=== PATIENT | male | born 1945 | race Two or more races ===

== ENCOUNTER → 2021-01-28 | Outpatient (CLI) | payer OTHER | END | disposition home or self-care (01) | LOC: XY 07:39 | PROVIDERS: ATTEND Internal Medicine | DX: C61 Malignant neoplasm of prostate (principal); R32 Unspecified urinary incontinence | CPT/HCPCS: 78306; A9503 ==

== ENCOUNTER → 2021-05-19 | Outpatient (CLI) | payer OTHER | END | disposition home or self-care (01) | LOC: LAB 11:58 | PROVIDERS: ATTEND Urology | DX: C61 Malignant neoplasm of prostate (principal); R32 Unspecified urinary incontinence | CPT/HCPCS: 84153 ==

== ENCOUNTER → 2021-10-22 | Outpatient (CLI) | payer OTHER | END | disposition home or self-care (01) | LOC: LAB 10:40 | PROVIDERS: ATTEND Urology | DX: R97.0 Elevated carcinoembryonic antigen [CEA] (principal) | CPT/HCPCS: 84153 ==

== ENCOUNTER → 2022-03-29 | Outpatient (CLI) | payer OTHER | END | disposition home or self-care (01) | LOC: LAB 12:32 | PROVIDERS: ATTEND Urology | DX: C61 Malignant neoplasm of prostate (principal) | CPT/HCPCS: 36415; 83036; 84132; 84153 ==

== ENCOUNTER → 2022-04-26 | Outpatient (CLI) | payer OTHER ==
[2022-04-26 09:23] LABS: Basophils # (auto) 0.1 10 ^3/uL (0-0.2); Basophils % (auto) 0.9 % (0.0-2.0); Eosinophils # (auto) 0.5 10 ^3/uL (0-0.8); Hematocrit 42.2 % (41.0-53.0); Hemoglobin 13.9 g/dL (13.5-17.5); Lymphocytes # (auto) 2.7 10 ^3/uL (0.4-5.4); Lymphocytes % (auto) 35.2 % (10.0-50.0); Mean Corpuscular Hemoglobin 30.9 pg (28.0-32.0); Mean Corpuscular Hgb Conc. 32.8 g/dL (32.0-36.0); Monocytes # (auto) 1.2 10 ^3/uL (0-1.3); Neutrophils # (auto) 3.2 10 ^3/uL (1.6-8.6); Neutrophils % (auto) 40.9 % (37.0-80.0); Red Blood Cells 4.49 10^6/uL (4.5-5.90); Red Cell Distribution Width 14.1 % (11.8-14.3); White Blood Cell 7.8 10^3/uL (4.4-10.8)
[2022-04-26 09:43] LABS: Albumin 3.3 g/dL (3.4-5.0)
[2022-04-26 09:49] LABS: BUN/Creatinine Ratio 12.4; Bilirubin, Total 1.1 mg/dL (0.2-1.0); Calcium 8.4 mg/dL (8.5-10.1); Total Protein 7.1 g/dL (6.4-8.2)
== END | disposition home or self-care (01) ==
LOC: LAB 08:52
PROVIDERS: ATTEND Internal Medicine
DX: I10 Essential (primary) hypertension (principal)
CPT/HCPCS: 36415; 80053; 85025

== ENCOUNTER → 2022-06-10 | Outpatient (CLI) | payer OTHER ==
[2022-06-10 12:14] LABS: Basophils # (auto) 0.1 10 ^3/uL (0-0.2); Basophils % (auto) 0.7 % (0.0-2.0); Eosinophils # (auto) 0.5 10 ^3/uL (0-0.8); Eosinophils % (auto) 5.5 % (0.0-7.0); Hematocrit 43.2 % (41.0-53.0); Hemoglobin 14.2 g/dL (13.5-17.5); Lymphocytes % (auto) 36.3 % (10.0-50.0); Mean Corpuscular Hemoglobin 31.1 pg (28.0-32.0); Mean Corpuscular Hgb Conc. 32.9 g/dL (32.0-36.0); Mean Corpuscular Volume 94.6 fL (80.0-100.0); Monocytes # (auto) 1.1 10 ^3/uL (0-1.3); Monocytes % (auto) 13.6 % (0.0-12.0); Neutrophils # (auto) 3.6 10 ^3/uL (1.6-8.6); Neutrophils % (auto) 43.9 % (37.0-80.0); Red Blood Cells 4.56 10^6/uL (4.5-5.90); Red Cell Distribution Width 14.9 % (11.8-14.3); White Blood Cell 8.2 10^3/uL (4.4-10.8)
[2022-06-10 12:20] LABS: Potassium 4.2 mmol/L (3.5-5.1)
[2022-06-10 12:24] LABS: Albumin 3.6 g/dL (3.4-5.0); BUN/Creatinine Ratio 8.7; Calcium 8.8 mg/dL (8.5-10.1)
[2022-06-10 12:26] LABS: Bilirubin, Total 1.3 mg/dL (0.2-1.0); Total Protein 7.2 g/dL (6.4-8.2)
== END | disposition home or self-care (01) ==
LOC: LAB 11:19
PROVIDERS: ATTEND Internal Medicine
DX: C61 Malignant neoplasm of prostate (principal)
CPT/HCPCS: 36415; 80053; 83615; 84153; 84403; 85025

== ENCOUNTER → 2022-07-12 | Outpatient (CLI) | payer OTHER | END | disposition home or self-care (01) | LOC: LAB 13:18 | PROVIDERS: ATTEND Urology | DX: C61 Malignant neoplasm of prostate (principal) | CPT/HCPCS: 84153; 84154 ==

== ENCOUNTER → 2022-11-22 | Outpatient (CLI) | payer OTHER | END | disposition home or self-care (01) | LOC: LAB 13:44 | PROVIDERS: ATTEND Urology | DX: C61 Malignant neoplasm of prostate (principal) | CPT/HCPCS: 84153; 84154 ==

== ENCOUNTER → 2022-11-25 | Outpatient (CLI) | payer OTHER ==
[2022-11-25 11:21] LABS: Basophils # (auto) 0.1 10 ^3/uL (0-0.2); Basophils % (auto) 0.8 % (0.0-2.0); Eosinophils # (auto) 0.5 10 ^3/uL (0-0.8); Eosinophils % (auto) 7.4 % (0.0-7.0); Hematocrit 41.2 % (41.0-53.0); Hemoglobin 14.2 g/dL (13.5-17.5); Lymphocytes # (auto) 1.6 10 ^3/uL (0.4-5.4); Lymphocytes % (auto) 25.2 % (10.0-50.0); Mean Corpuscular Hemoglobin 32.6 pg (28.0-32.0); Mean Corpuscular Hgb Conc. 34.4 g/dL (32.0-36.0); Mean Corpuscular Volume 94.7 fL (80.0-100.0); Monocytes % (auto) 16.8 % (0.0-12.0); Neutrophils # (auto) 3.1 10 ^3/uL (1.6-8.6); Neutrophils % (auto) 49.8 % (37.0-80.0); Nucleated Red Blood Cells % 0.1 %; Red Blood Cells 4.35 10^6/uL (4.5-5.90); Red Cell Distribution Width 13.6 % (11.8-14.3); White Blood Cell 6.2 10^3/uL (4.4-10.8)
[2022-11-25 11:47] LABS: Urine Bacteria FEW /hpf (None Seen); Urine Blood Negative /uL (Negative); Urine Mucus FEW (None Seen); Urine Specific Gravity 1.026 (1.001-1.035); Urine WBC 1 /hpf (0 - 3)
[2022-11-25 11:55] LABS: Potassium 4.1 mmol/L (3.5-5.1)
[2022-11-25 11:59] LABS: Free T4 (Free Thyroxine) 0.98 ng/dL (0.89-1.76)
[2022-11-25 12:02] LABS: Prostate Specific Antigen 5.84 ng/mL (0.0-4.0)
[2022-11-25 12:12] LABS: Albumin 3.3 g/dL (3.4-5.0); BUN/Creatinine Ratio 15.4; Bilirubin, Total 1.1 mg/dL (0.2-1.0); Calcium 8.7 mg/dL (8.5-10.1)
== END | disposition home or self-care (01) ==
LOC: LAB 10:50
PROVIDERS: ATTEND Internal Medicine
DX: C61 Malignant neoplasm of prostate (principal); I10 Essential (primary) hypertension; E11.9 Type 2 diabetes mellitus without complications
CPT/HCPCS: 36415; 80053; 80061; 81001; 82043; 82570; 83036; 83880; 84153; 84154; 84439; 84443; 85025; 85652

== ENCOUNTER → 2022-12-20 | Outpatient (CLI) | payer OTHER | END | disposition home or self-care (01) | LOC: LAB 10:27 | PROVIDERS: ATTEND Radiology Radiation Oncology | DX: C61 Malignant neoplasm of prostate (principal) | CPT/HCPCS: 84153; 84154 ==

== ENCOUNTER → 2023-05-30 | Outpatient (CLI) | payer OTHER | END | disposition home or self-care (01) | LOC: LAB 10:01 | PROVIDERS: ATTEND Urology | DX: C61 Malignant neoplasm of prostate (principal) | CPT/HCPCS: 84153 ==

== ENCOUNTER → 2024-03-14 | Outpatient (CLI) | payer MEDICAID ==
[2024-03-14 08:22] LABS: Basophils # (auto) 0.1 10 ^3/uL (0-0.2); Basophils % (auto) 0.7 % (0.0-2.0); Eosinophils # (auto) 0.5 10 ^3/uL (0-0.8); Eosinophils % (auto) 7.3 % (0.0-7.0); Hematocrit 39.6 % (41.0-53.0); Hemoglobin 13.4 g/dL (13.5-17.5); Lymphocytes # (auto) 2.9 10 ^3/uL (0.4-5.4); Lymphocytes % (auto) 38.8 % (10.0-50.0); Mean Corpuscular Hemoglobin 31.9 pg (28.0-32.0); Mean Corpuscular Hgb Conc. 33.8 g/dL (32.0-36.0); Mean Corpuscular Volume 94.6 fL (80.0-100.0); Monocytes # (auto) 1.3 10 ^3/uL (0-1.3); Monocytes % (auto) 17.2 % (0.0-12.0); Neutrophils # (auto) 2.7 10 ^3/uL (1.6-8.6); Red Blood Cells 4.18 10^6/uL (4.5-5.90); Red Cell Distribution Width 14.4 % (11.8-14.3); White Blood Cell 7.5 10^3/uL (4.4-10.8)
[2024-03-14 08:50] LABS: Albumin 3.5 g/dL (3.2-4.8); Alkaline Phosphatase 64 U/L (46-116); Anion Gap 7 (5-15); Aspartate Aminotransferase 19 U/L (13-40); BUN/Creatinine Ratio 8.4 (10.0-20.0); Blood Urea Nitrogen 8 mg/dL (9-23); Calcium 9.5 mg/dL (8.5-10.1); Carbon Dioxide 26 mmol/L (20-30); Chloride 106 mmol/L (98-107); Glucose 107 mg/dL (74-106); Magnesium 1.7 mg/dL (1.6-2.6); Potassium 3.9 mmol/L (3.5-5.1); Sodium 139 mmol/L (136-145)
[2024-03-14 08:51] LABS: Bilirubin, Total 1.1 mg/dL (0.2-1.0)
[2024-03-14 08:52] LABS: Alanine Aminotransferase < 9 U/L (7-40)
[2024-03-14 09:04] LABS: % Iron Saturation 15.9 % (20-55); Prostate Specific Antigen 9.96 ng/mL (0.0-4.0)
[2024-03-15 09:07] LABS: PSA Free 1.3 ng/mL; Prostate Specific Antigen 12.1 ng/mL (0.0-4.0)
== END | disposition home or self-care (01) ==
LOC: LAB 07:54
PROVIDERS: ATTEND Internal Medicine
DX: I13.0 Hypertensive heart and chronic kidney disease with heart failure and stage 1 through stage 4 chronic kidney disease, or unspecified chronic kidney disease (principal); E11.22 Type 2 diabetes mellitus with diabetic chronic kidney disease; N18.2 Chronic kidney disease, stage 2 (mild); I25.10 Atherosclerotic heart disease of native coronary artery without angina pectoris; R97.20 Elevated prostate specific antigen [PSA]
CPT/HCPCS: 36415; 80053; 82607; 83036; 83540; 83550; 83615; 83735; 84153; 84154; 85025

== ENCOUNTER → 2024-04-27 | Outpatient (CLI) | payer MEDICAID | END | disposition home or self-care (01) | LOC: LAB 12:19 | PROVIDERS: ATTEND Urology | DX: C61 Malignant neoplasm of prostate (principal); R30.0 Dysuria | CPT/HCPCS: 84153 ==

== ENCOUNTER → 2024-11-13 | Outpatient (CLI) | payer MEDICAID ==
[~2024-11-13] MED LIST: BICA50TA42 PO; CARB25TA77 PO; CARV-214 OR; CLOP75TA28 PO; FURO20TA3 PO; GLIP5TAB21 PO; LORA-1121 PO; METF-929 PO; MIRT1TAB38 PO; ROSU10TA16 PO; TAMS1CAP25 PO; TRAM50TA2 PO
== END | disposition home or self-care (01) ==
LOC: LAB 15:14
PROVIDERS: ATTEND Urology
DX: C61 Malignant neoplasm of prostate (principal)
CPT/HCPCS: 84153

== ENCOUNTER 2024-11-16 14:48 | Inpatient (IN) | payer OTHER, MEDICAID ==
[~2024-11-16] VITALS: Ht 172.7 cm; Wt 71.0 kg
--- NOTE | 2024-11-16 14:58 | ED.PDOC ---
Leobardo. trauma (HPI) HPI Comments 79 y.o male with medical history of COPD, CHF, TIA, HTN, hyperlipidemia, and prostate cancer, presents to the ED for a chief complaint of LUQ pain s/p fall 4 days ago . EMS reports patient had home hospice come to his house yesterday, evaluated possible fractures from the fall and were concerned of possible perforated bowel due to location of the pain. Patient at this time is mumbling, unable to get much information or any other associating complaints with the pain. Family on scene mentioned to EMS that patient's baseline is alert and oriented x 4. EMS gave 1 gram of Tylenol prior to ED arrival but no pain relief. Patient is on Plavix. Patient's last bowel movement was 3 days ago. Time Seen by MD: 14:44 Reviewed notes: Nurses Notes, Medications, Allergies Information Source: Emergency Med Personnel Mode of Arrival: EMS Severity: Moderate Timing: Days (4) Duration: Since onset Location: Abdominal Mechanism: Fall Associated signs and symtoms: Other Past Medical History PAST MEDICAL HISTORY: Cancer (prostate ), CHF, COPD, High Lipids, HTN, TIA Surgical History: CABG Surgical History (Other): back Family History Family History: Reviewed,noncontributory to illness Social History Smoker: Non-Smoker Alcohol: Denies ETOH Use Drugs: Denies Drug Use Lives In: Home Constitutional: denies: chills, diaphoresis, fatigue, fever, malaise, sweats, weakness, others EENTM: denies: blurred vision, double vision, ear bleeding, ear discharge, ear drainage, ear pain, ear ringing, eye pain, eye redness, hearing loss, mouth pain, mouth swelling, nasal discharge, nose bleeding, nose congestion, nose pain, photophobia, tearing, throat pain, throat swelling, voice changes, others Respiratory: denies: cough, hemoptysis, orthopnea, SOB at rest, shortness of breath, SOB with excertion, stridor, wheezing, others Cardiovascular: denies: chest pain, dizzy spells, diaphoresis, Dyspnea on exertion, edema, irregular heart beat, left arm pain, lightheadedness, palpitations, PND, syncope, others Gastrointestinal: reports: abdominal pain; denies: abdomen distended, blood streaked bowels, constipated, diarrhea, dysphagia, difficulty swallowing, hematemesis, melena, nausea, poor appetite, poor fluid intake, rectal bleeding, rectal pain, vomiting, others Genitourinary: denies: burning, dysuria, flank pain, frequency, hematuria, incontinence, penile discharge, penile sore, pain, testicle pain, testicle swelling, urgency, others Neurological: denies: dizziness, fainting, headache, left sided numbness, left sided weakness, numbness, paresthesia, pre-existing deficit, right sided numbness, right sided weakness, seizure, speech problems, tingling, tremors, weakness, others Musculoskeletal: denies: back pain, gout, joint pain, joint swelling, muscle pain, muscle stiffness, neck pain, others Integumetry: denies: bruises, change in color, change in hair/nails, dryness, laceration, lesions, lumps, rash, wounds, others Allergic/Immunocompromised: denies: Difficulty Healing, Frequent Infections, Hives, Itching, others Hematologic/Lymphatic: denies: anemia, blood clots, easy bleeding, easy bruising, swollen glands, others Endocrine: denies: excessive hunger, excessive sweating, excessive thirst, excessive urination, flushing, intolerance to cold, intolerance to heat, unexplained weight gain, unexplained weight loss, others Psychiatric: denies: anxiety, bipolar disorder, depression, hopeless, panic disorder, schizophrenia, sleepless, suicidal, others Unable to Obtain due to: Other (Patient's pain ) Physical Exam General Appearance: Moderate Distress HEENT: Normal ENT Inspection, Pharynx Normal, TMs Normal Neck: Full Range of Motion, Non-Tender, Normal, Normal Inspection Respiratory: Chest Non-Tender, Lungs Clear, No Accessory Muscle Use, No Respiratory Distress, Normal Breath Sounds Cardiovascular: No Edema, No JVD, No Murmur, No Gallop, Normal Peripheral Pulses, Regular Rate/Rhythm Breast Exam: Deferred Gastrointestinal: LUQ, No Organomegaly, No Pulsatile Mass, Normal Bowel Sounds, Soft, Tenderness Genitalia: Deferred Pelvic: Deferred Rectal: Deferred Extremities: No calf tenderness, Normal capillary refill, Normal inspection, Normal range of motion, Non-tender, No pedal edema Musculoskeletal : Apperance: Normal Neurologic: Alert, strategic sourcing manager II-XII nml as Tested, No Motor Deficits, Normal Affect, Normal Mood, No Sensory Deficits Cerebellar Function: Normal Reflexes: Normal Skin: Dry, Normal Color, Warm Lymphatic: No Adenopathy Was a procedure done? Was a procedure done?: No Differential Diagnosis Multiple Trauma: Pneumothorax, Contusion, Other (intra abdominal trauma) X-Ray, Labs, Meds, VS Vital Signs Date Time Temp Pulse Resp B/P (MAP) Pulse Ox O2 Delivery O2 Flow Rate FiO2 11/16/24 14:59 97.7 78 16 144/73 (96) 94 Lab Test 11/16/24 16:02 11/16/24 15:03 Range/Units Urine Color Yellow Yellow Urine Clarity Clear Clear Urine pH 5.5 5.0-9.0 Urine Specific [place] 1.045 H 1.001-1.035 Urine Protein Trace H Negative Urine Ketones Negative Negative Urine Blood Negative Negative /uL Urine Nitrite 2+ H Negative Urine Bilirubin Negative Negative Urine Urobilinogen Normal Negative mg/dL Urine Leukocyte Esterase 2+ Negative /uL Urine RBC 1 0 - 3 /hpf Urine Microscopic WBC 96 H 0-3 /HPF Urine Squamous Epithelial Cells Few <5 /hpf Urine Bacteria None seen None Seen /hpf Urine Mucus Few None Seen Urine Glucose Normal Normal mg/dL White Blood Count 9.7 4.4-10.8 10^3/uL Red Blood Count 4.05 L 4.5-5.90 10^6/uL Hemoglobin 13.2 L 13.5-17.5 g/dL Hematocrit 39.3 L 41.0-53.0 % Mean Corpuscular Volume 97.0 80.0-100.0 fL Mean Corpuscular Hemoglobin 32.5 H 28.0-32.0 pg Mean Corpuscular Hemoglobin Concent 33.5 32.0-36.0 g/dL Red Cell Distribution Width 14.3 11.8-14.3 % Platelet Count 203 140-450 10^3/uL Mean Platelet Volume 8.3 6.9-10.8 fL Neutrophils (%) (Auto) 60.0 37.0-80.0 % Lymphocytes (%) (Auto) 23.1 10.0-50.0 % Monocytes (%) (Auto) 14.1 H 0.0-12.0 % Eosinophils (%) (Auto) 2.5 0.0-7.0 % Basophils (%) (Auto) 0.3 0.0-2.0 % Neutrophils # (Auto) 5.8 1.6-8.6 10 ^3/uL Lymphocytes # (Auto) 2.2 0.4-5.4 10 ^3/uL Monocytes # (Auto) 1.4 H 0-1.3 10 ^3/uL Eosinophils # (Auto) 0.2 0-0.8 10 ^3/uL Basophils # (Auto) 0 0-0.2 10 ^3/uL Nucleated Red Blood Cells 0.0 % Prothrombin Time 10.5 9.3-11.8 sec Prothrombin Time INR 0.99 0.9-1.15 Activated Partial Thromboplast Time 27.2 24.5-34.5 SEC Sodium Level 136 136-145 mmol/L Potassium Level 4.2 3.5-5.1 mmol/L Chloride Level 103 98-107 mmol/L Carbon Dioxide Level 24 20-31 mmol/L Anion Gap 9 5-15 Blood Urea Nitrogen 13 9-23 mg/dL Creatinine 0.94 0.700-1.30 mg/dL Glomerular Filtration Rate Calc 82 >90 mL/min BUN/Creatinine Ratio 13.8 10.0-20.0 Serum Glucose 193 H 74-106 mg/dL Calcium Level 9.6 8.7-10.4 mg/dL Total Bilirubin 1.3 H 0.2-1.0 mg/dL Aspartate Amino Transferase (AST) 16 13-40 U/L Alanine Aminotransferase (ALT) 17 7-40 U/L Alkaline Phosphatase 78 46-116 U/L Total Protein 6.8 5.7-8.2 g/dL Albumin 4.3 3.2-4.8 g/dL IV Hep-Lock was established. The CT scan of the abdomen and pelvis shows: IMPRESSION: 1. There is no acute process in the abdomen and pelvis.. 2. Sigmoid diverticulosis without evidence of acute diverticulitis. At this time, the patient's CBC is within normal limits The chemistry panel is within normal limits The urine test is positive for UTI The patient was being admitted to the hospitalist The patient was still having intractable abdominal pain The patient was being given Rocephin 1 g IV piggyback Images Reviewed?: Images reviewed and evaluated by me Time of 1ST Reevaluation: 14:53 Reevaluation 1ST: Unchanged Patient Education/Counseling: Other Family Education/Counseling: Other Departure 1 Departure Time of Disposition: 16:50 Impression: Primary Impression: Intractable abdominal pain Additional Impression: UTI (urinary tract infection) Qualified Codes: N30.00 - Acute cystitis without hematuria Disposition: ADMITTED INPATIENT Admit to: Med Surg Condition: Fair Critical Care Note Critical Care Time?: No Stability Stability form required: Yes Unstable for transfer: ED Physician Assesment (Clinical assesment) I personally scribed for BINDU SIMPSON MD ([email or web address]) on 11/16/24 at 14:58. Electronically submitted by Joi Parra ([facility]). I personally scribed for BINDU SIMPSON MD ([email or web address]) on 11/16/24 at 14:59. Electronically submitted by Joi Parra ([facility]). BINDU SIMPSON MD Nov 16, 2024 14:58
[2024-11-16] MEDS ORDERED: IOHEXOL 300 MG/ML 100ML BOTTLE IJ ONE (15:00)
[2024-11-16 15:35] LABS: Basophils # (auto) 0 10 ^3/uL (0-0.2); Basophils % (auto) 0.3 % (0.0-2.0); Eosinophils # (auto) 0.2 10 ^3/uL (0-0.8); Eosinophils % (auto) 2.5 % (0.0-7.0); Hematocrit 39.3 % (41.0-53.0); Hemoglobin 13.2 g/dL (13.5-17.5); Lymphocytes # (auto) 2.2 10 ^3/uL (0.4-5.4); Lymphocytes % (auto) 23.1 % (10.0-50.0); Mean Corpuscular Hemoglobin 32.5 pg (28.0-32.0); Mean Corpuscular Hgb Conc. 33.5 g/dL (32.0-36.0); Monocytes # (auto) 1.4 10 ^3/uL (0-1.3); Monocytes % (auto) 14.1 % (0.0-12.0); Neutrophils # (auto) 5.8 10 ^3/uL (1.6-8.6); Platelet Count (auto) 203 10^3/uL (140-450); Red Blood Cells 4.05 10^6/uL (4.5-5.90); Red Cell Distribution Width 14.3 % (11.8-14.3); White Blood Cell 9.7 10^3/uL (4.4-10.8)
--- NOTE | 2024-11-16 15:36 | DVH ---
Exam: CT CT AB PEL WITH IV CON ONLY History: S/P FALL WITH TRAUMA TECHNIQUE: A digital telephone service adviser image was obtained. During the uneventful, intravenous administration of c ontrast material, multislice data acquisition was obtained through the abdomen and pelvis. The data s et was subsequently reconstructed into axial images. Images were reviewed on a work station using a c ombination of axial and multiplanar using a variety of window levels and settings. 100 cc of Omnipaqu e 300 contrast was injected intravenously. All CT scans at this medical facility are performed using dose modulation techniques as appropriate t o a performed exam including the following:Automated exposure control was utilized; adjustment of the MA and/or KV according to patient size; and use of iterative reconstruction technique. Radiation Dose Information: CT Dose: CTDI volume is 22.66 mGy. Dose-length product is 1303.91 mGy*cm Comparison: None FINDINGS: There are bilateral renal cysts measuring up to 3.4 cm in the midpole of the left kidney. There is no evidence of nephrolithiasis or hydronephrosis The gallbladder is surgically absent. Theliver, pancreas, adrenal glands, and spleen appear within normal limits. There is no evidence of abdominal lymphadenopathy. There is no free fluid or free air. The stomach grossly appears unremarkable. The small and large bowel loops demonstrate normal caliber. There are multiple diverticula in the sigmoid colon without evidence of acute diverticulitis. There are calcified atherosclerotic changes in the abdominal aorta. The IVC appears within normal li mits. The bladder appears within normal limits the degree of distention. There is no evidence of a pelvic mass or lymphadenopathy. There is no free fluid collection. There is scarring versus atelectasis in the lung bases. There is no acute osseous abnormality. IMPRESSION: 1. There is no acute process in the abdomen and pelvis.. 2. Sigmoid diverticulosis without evidence of acute diverticulitis. HS:Y
[2024-11-16 15:48] LABS: Alanine Aminotransferase 17 U/L (7-40); Albumin 4.3 g/dL (3.2-4.8); Alkaline Phosphatase 78 U/L (46-116); Anion Gap 9 (5-15); Aspartate Aminotransferase 16 U/L (13-40); BUN/Creatinine Ratio 13.8 (10.0-20.0); Blood Urea Nitrogen 13 mg/dL (9-23); Calcium 9.6 mg/dL (8.7-10.4); Carbon Dioxide 24 mmol/L (20-31); Chloride 103 mmol/L (98-107); INR 0.99 (0.9-1.15); Partial Thromboplastin Time 27.2 SEC (24.5-34.5); Potassium 4.2 mmol/L (3.5-5.1); Prothrombin Time 10.5 sec (9.3-11.8)
[2024-11-16 15:49] LABS: Total Protein 6.8 g/dL (5.7-8.2)
[2024-11-16 15:53] LABS: Bilirubin, Total 1.3 mg/dL (0.2-1.0); Glucose 193 mg/dL (74-106); Sodium 136 mmol/L (136-145)
[2024-11-16 16:12] LABS: Urine Bacteria None Seen /hpf (None Seen)
[2024-11-16 16:22] LABS: Urine Blood Negative /uL (Negative); Urine Clarity Clear (Clear); Urine Color Yellow (Yellow); Urine Mucus FEW (None Seen); Urine Protein, UAD TRACE (Negative); Urine Specific Gravity 1.045 (1.001-1.035); Urine Squamous Epithelial Cell FEW /hpf (<5); Urine Urobilinogen Normal (Negative); Urine WBC 96 /HPF (0-3); Urine pH 5.5 (5.0-9.0)
[2024-11-16] MEDS ORDERED: hydrALAZINE HCL 20 MG/ML VL IV PRN (19:15)
[2024-11-16] MEDS ORDERED: DEXTROSE (50%) 50ML SYRG IV PRN (19:15)
[2024-11-16] MEDS ORDERED: DOCUSATE SOD 100 MG CAP PO PRN (19:15)
[2024-11-16] MEDS ORDERED: ONDANSETRON HCL 4 MG/2 ML VIAL IV PRN (19:15)
[2024-11-16] MEDS ORDERED: HYDROcodone-ACET 5/325MG TAB PO PRN (19:15)
--- NOTE | 2024-11-16 20:11 | DVHHP2 ---
History of Present Illness Reason for Visit: Intractable abdominal pain History of Present Illness The patient is a 79-year-old male with multiple past medical history including CHF, COPD, Parkinson's disease, and hypertension presented to [facility] ED with complaint of left upper quadrant abdominal pain. Patient's daughter reports he had a fall 4 days ago, currently on hospice, last bowel movement was 3 days ago. Patient was seen and evaluated in the ED, laboratory data shows WBC 9.7, platelets 203, sodium 136, potassium 4.2, BUN 13, creatinine 0.94, GFR 82, glucose 193, blood pressure 144/73, heart rate 78, temperature 97.7 F, O2 saturation 94% on oxygen. Urinalysis positive for urinary tract infection. Patient was started on IV antibiotic regimen Rocephin, please see medication orders section in the computer. On my assessment, daughter at bedside, patient denied chest pain, no headache, no dizziness, no diaphoresis, shortness of breaths, no nausea, no vomiting, no fever, no chills. Patient was admitted for further evaluation and medical management. Past Medical History Parkinson's disease, Cancer (prostate ), CHF, COPD, High Lipids, HTN, TIA Past Surgical History CABG, Back surgery Family History Reviewed, noncontributory to the management of this case. Past Social History The patient lives at home, denies smoking, alcohol or illicit drugs abuse. Review of Systems Constitutional: Yes: Weakness; No: Fever, Chills, Sweats, Malaise, Other Eyes: No: Pain, Vision change, Conjunctivae inflammation, Eyelid inflammation, Other, Redness ENT: No: Ear pain, Ear discharge, Nose pain, Nose discharge, Nose congestion, Mouth pain, Mouth swelling, Throat pain, Throat swelling, Other Respiratory: No: Cough, Dry, Shortness of breath, SOB with excertion, Wheezing, Hemoptysis, Pleuritic Pain, Sputum, Wheezing, Other Cardiovascular: No: Chest Pain, Palpitations, Orthopnea, Paroxysmal Noc. Dyspnea, Edema, Lt Headedness, Other Gastrointestinal: Abdominal Pain; No: Nausea, Vomiting, Diarrhea, Constipation, Melena, Hematochezia, Other Genitourinary: No Dysuria, No Frequency, No Incontinence, No Hematuria, No Retention, No Other Musculoskeletal: No: other, neck pain, shoulder pain, arm pain, back pain, hand pain, leg pain, foot pain Skin: No: Rash, Lesions, Jaundice, Bruising, Other Neurological: No: Weakness, Numbness, Incoordination, Change in speech, Confusion, Seizures, Other Allergies: Coded Allergies: NO KNOWN ALLERGIES (Unverified , 11/16/24) PT AND FAMILY CONFIRMED, PT DOES NOT HAVE ANY ALLERGIES Medications Current Medications Medications Dose Ordered Sig/Elana Route Start Time Stop Time Status Last Admin Dose Admin Atorvastatin Calcium 10 mg HS PO 11/16/24 22:00 UNV Aspirin 81 mg DAILY PO 11/17/24 10:00 UNV Carvedilol 3.125 mg Q12HR PO 11/16/24 22:00 UNV Ceftriaxone Sodium 50 ml @ 100 mls/hr DAILY@09 IV 11/17/24 09:00 UNV Carbidopa/Levodopa 1 tab QID PO 11/16/24 22:00 UNV Tamsulosin HCl 0.4 mg QPM PO 11/17/24 18:00 UNV Hydralazine HCl 10 mg Q6HP PRN IV 11/16/24 19:15 UNV Diagnostic Test (Pha) 1 strip ACHS 11/16/24 22:00 UNV Insulin Human Regular HS SC 11/16/24 22:00 UNV Insulin Human Regular AC SC 11/17/24 07:00 UNV Dextrose 50 ml UD PRN IV 11/16/24 19:15 UNV Sodium Chloride 10 ml Q8HR IV 11/16/24 22:00 UNV Acetaminophen/ Hydrocodone Bitart 1 tab Q4HP PRN PO 11/16/24 19:15 UNV Ondansetron HCl 4 mg Q4HP PRN IV 11/16/24 19:15 UNV Docusate Sodium 100 mg BIDPRN PRN PO 11/16/24 19:15 UNV Acetaminophen 650 mg Q6HP PRN PO 11/16/24 19:15 UNV Exam Vital Signs Vital Signs Date Time Temp Pulse Resp B/P (MAP) Pulse Ox O2 Delivery O2 Flow Rate FiO2 11/16/24 14:59 97.7 78 16 144/73 (96) 94 General Appearance: Alert, Cooperative, No acute distress, Other (Oriented x2) HEENT: Atraumatic, PERRLA, EOMI, Mucous membr. moist/pink Respiratory: Clear to auscultation, Normal air movement Cardiovascular: Regular rate, Normal S1, Normal S2, No murmurs Abdominal: Normal bowel sounds, Soft, No tenderness, No hepatospenomegaly, No masses Extremities: No clubbing, No cyanosis, No edema, Normal pulses, No tenderness/swelling Skin: No rashes, No breakdown, No significant lesion Neuro: Normal speech, Normal tone, Sensation intact, Cranial nerves 3-12 NL, Reflexes 2+, Other (Generalized weakness) Psych/Mental Status: Mental status NL, Mood NL Labs/Xrays Labs Test 11/16/24 16:02 11/16/24 15:03 Range/Units Urine Color Yellow Yellow Urine Clarity Clear Clear Urine pH 5.5 5.0-9.0 Urine Specific [place] 1.045 H 1.001-1.035 Urine Protein Trace H Negative Urine Ketones Negative Negative Urine Blood Negative Negative /uL Urine Nitrite 2+ H Negative Urine Bilirubin Negative Negative Urine Urobilinogen Normal Negative mg/dL Urine Leukocyte Esterase 2+ Negative /uL Urine RBC 1 0 - 3 /hpf Urine Microscopic WBC 96 H 0-3 /HPF Urine Squamous Epithelial Cells Few <5 /hpf Urine Bacteria None seen None Seen /hpf Urine Mucus Few None Seen Urine Glucose Normal Normal mg/dL White Blood Count 9.7 4.4-10.8 10^3/uL Red Blood Count 4.05 L 4.5-5.90 10^6/uL Hemoglobin 13.2 L 13.5-17.5 g/dL Hematocrit 39.3 L 41.0-53.0 % Mean Corpuscular Volume 97.0 80.0-100.0 fL Mean Corpuscular Hemoglobin 32.5 H 28.0-32.0 pg Mean Corpuscular Hemoglobin Concent 33.5 32.0-36.0 g/dL Red Cell Distribution Width 14.3 11.8-14.3 % Platelet Count 203 140-450 10^3/uL Mean Platelet Volume 8.3 6.9-10.8 fL Neutrophils (%) (Auto) 60.0 37.0-80.0 % Lymphocytes (%) (Auto) 23.1 10.0-50.0 % Monocytes (%) (Auto) 14.1 H 0.0-12.0 % Eosinophils (%) (Auto) 2.5 0.0-7.0 % Basophils (%) (Auto) 0.3 0.0-2.0 % Neutrophils # (Auto) 5.8 1.6-8.6 10 ^3/uL Lymphocytes # (Auto) 2.2 0.4-5.4 10 ^3/uL Monocytes # (Auto) 1.4 H 0-1.3 10 ^3/uL Eosinophils # (Auto) 0.2 0-0.8 10 ^3/uL Basophils # (Auto) 0 0-0.2 10 ^3/uL Nucleated Red Blood Cells 0.0 % Prothrombin Time 10.5 9.3-11.8 sec Prothrombin Time INR 0.99 0.9-1.15 Activated Partial Thromboplast Time 27.2 24.5-34.5 SEC Sodium Level 136 136-145 mmol/L Potassium Level 4.2 3.5-5.1 mmol/L Chloride Level 103 98-107 mmol/L Carbon Dioxide Level 24 20-31 mmol/L Anion Gap 9 5-15 Blood Urea Nitrogen 13 9-23 mg/dL Creatinine 0.94 0.700-1.30 mg/dL Glomerular Filtration Rate Calc 82 >90 mL/min BUN/Creatinine Ratio 13.8 10.0-20.0 Serum Glucose 193 H 74-106 mg/dL Calcium Level 9.6 8.7-10.4 mg/dL Total Bilirubin 1.3 H 0.2-1.0 mg/dL Aspartate Amino Transferase (AST) 16 13-40 U/L Alanine Aminotransferase (ALT) 17 7-40 U/L Alkaline Phosphatase 78 46-116 U/L Total Protein 6.8 5.7-8.2 g/dL Albumin 4.3 3.2-4.8 g/dL PATIENT: CINDY OLIVA ACCT: [id number] UNIT: [id number] : 1945 LOC: ER ROOM / BED: / AGE / SEX: 79 / M ADM STATUS: REG ER SERVICE [id number] ORDERING PHYSICIAN: BINDU SIMPSON MD PROCEDURE(s): ABPLIV - CT AB PEL WITH IV CON ONLY REASON: S/P FALL WITH TRAUMA ORDER NUMBER(s): [id number], ACCESSION NUMBER(s): [id number] Exam: CT CT AB PEL WITH IV CON ONLY History: S/P FALL WITH TRAUMA TECHNIQUE: A digital fern gatherer image was obtained. During the uneventful, intravenous administration of contrast material, multislice data acquisition was obtained through the abdomen and pelvis. The data set was subsequently reconstructed into axial images. Images were reviewed on a work station using a combination of axial and multiplanar using a variety of window levels and se ttings. 100 cc of Omnipaque 300 contrast was injected intravenously. All CT scans at this medical facility are performed using dose modulation techniques as appropriate to a performed exam including the following:Automated exposure control was utilized; adjustment of the MA and/or KV according to patient size; and use of iterative reconstruction technique. Radiation Dose Information: CT Dose: CTDI volume is 22.66 mGy. Dose-length product is 1303.91 mGy*cm Comparison: None FINDINGS: There are bilateral renal cysts measuring up to 3.4 cm in the midpole of the left kidney. There is no evidence of nephrolithiasis or hydronephrosis The gallbladder is surgically absent. Theliver, pancreas, adrenal glands, and spleen appear within normal limits. There is no evidence of abdominal lymphadenopathy. There is no free fluid or free air. The stomach grossly appears unremarkable. The small and large bowel loops demonstrate normal caliber. There are multiple diverticula in the sigmoid colon without evidence of acute diverticulitis. There are calcified atherosclerotic changes in the abdominal aorta. The IVC appears within normal limits. The bladder appears within normal limits the degree of distention. There is no evidence of a pelvic mass or lymphadenopathy. There is no free fluid collection. There is scarring versus atelectasis in the lung bases. There is no acute osseous abnormality. IMPRESSION: 1. There is no acute process in the abdomen and pelvis.. 2. Sigmoid diverticulosis without evidence of acute diverticulitis. Assessment/Plan Assessment/Plan Intractable abdominal pain UTI (urinary tract infection) Generalized weakness Acute cystitis without hematuria Plan 1. Admit to med surge unit 2. Breathing treatment 3. Pain control management 4. IV antibiotic management 5. Management of fluids and electrolytes 6. Consultation for hospitalist 7. Diagnostic test abdomen/pelvis CT 8. DVT prophylaxis-on SCDs 9. Repeat labs CBC, CMP in a.m. 10. Home medication reviewed and reconciled 11. Continue with current medical management 12. Treatment plan discussed with patient/daughter and RN. Patient/daughter verbalized understanding. Plan discussed with: Patient, Other (RN) My Orders Orders - OKPAN,VICKY O DNP Procedure Category Date Status Time Atorvastatin (Lipitor) PHA 11/16/24 Logged 22:00 Aspirin Tablet PHA 11/17/24 Logged 10:00 Carvedilol Tablet PHA 11/16/24 Logged (Coreg Tablet) 22:00 Consistent DIET 11/17/24 Transmitted Carb(Ccho)Diabetes Breakfast Urine Bacterial RICKEY 11/16/24 In Process Culture 19:14 Ceftriaxone 1gm/50ml PHA 11/17/24 Logged D5w (Rocephin) 09:00 Ceftriaxone 1gm/50ml PHA 11/16/24 Logged D5w (Rocephin) 19:15 Carbidopa W Levodopa PHA 11/16/24 Logged 25/100mg (Sinemet 2 22:00 Tamsulosin PHA 11/17/24 Logged Hydrochloride (Flomax) 18:00 Hydralazine Injection PHA 11/16/24 Logged (Apresoline Inject 19:15 Glucose Blood PHA 11/16/24 Logged (Accu-Chek Comfort 22:00 Insulin R (Human) PHA 11/16/24 Logged (Insulin R) 22:00 Insulin R (Human) PHA 11/17/24 Logged (Insulin R) 07:00 Dextrose 50% Syringe PHA 11/16/24 Logged 19:15 Allergies ADAMARIS 11/16/24 In Process 19:14 Code Status CODE 11/16/24 Transmitted 19:14 Sodium Chloride Lock PHA 11/16/24 Logged (Saline Lock Ns) 22:00 Oxygen Per Hour RT 11/16/24 Transmitted 19:14 Hydrocodone-Acet PHA 11/16/24 Logged 5/325mg Tab (Triangle 19:15 Ondansetron Hcl PHA 11/16/24 Logged (Zofran) 19:15 Docusate Sodium PHA 11/16/24 Logged Capsule (Colace 19:15 Complete Blood Count LAB 11/17/24 Verified 04:00 Comprehensive LAB 11/17/24 Verified Metabolic Panel 04:00 Condition: Serious ADAMARIS 11/16/24 In Process 19:14 Acetaminophen Tablet PHA 11/16/24 Logged (Tylenol Tablet) 19:15 Bedrest With Bathroom ADAMARIS 11/16/24 In Process Privileg 19:14 Sequential ADAMARIS 11/16/24 In Process Compression Device Admit ADMIT 11/16/24 Transmitted 20:09 Nitroglycerin PHA 11/16/24 Transmitted Sublingual (Ntrostat 20:15 Morphine Sulfate PHA 11/16/24 Transmitted Injection 20:15 Notify Md Of Changes ADAMARIS 11/16/24 Transmitted From Base 20:09 Emergency Dysrhythmia ADAMARIS 11/16/24 Transmitted Protocol 20:09 Oxygen By Nasal RT 11/16/24 Transmitted Cannula 20:09 Problem List: (1) Intractable abdominal pain (2) UTI (urinary tract infection) (3) Generalized weakness (4) Acute cystitis without hematuria Date of Service: Nov 16, 2024 Billing Provider: VICKY PECK DNP Common Visit Codes: 66061-[id number] INP/OBS CARE (HIGH) VICKY PECK DNP Nov 16, 2024 20:11
[2024-11-16] MEDS ORDERED: NITROGLYCERIN 0.4 MG SL TAB SL PRN (20:15)
[2024-11-16] MEDS ORDERED: MORPHINE SULFATE INJ 2 MG/ml SYRG IV PRN (20:15)
[2024-11-16 21:02] VITALS: PULSE 76; RESP 16; O2SAT 92
[2024-11-16 22:30] VITALS: BP 159/94; PULSE 75; RESP 18; TEMP 97.5; O2SAT 94
[2024-11-16] MEDS: InsuLIN REG 1unit/0.01ml Soln (100units/ml) SC SCH (23:00)
[2024-11-16] MEDS: ACCU-CHEK COMFORT CURVE STRIP VI SCH (23:00)
[2024-11-16] MEDS ORDERED: ROSU10TA16 PO (23:13)
[2024-11-16] MEDS ORDERED: FURO20TA3 PO (23:13)
[2024-11-16] MEDS ORDERED: GLIP5TAB21 PO (23:13)
[2024-11-16] MEDS ORDERED: CARV-214 OR (23:13)
[2024-11-16] MEDS ORDERED: BICA50TA42 PO (23:13)
[2024-11-16] MEDS ORDERED: MIRT1TAB38 PO (23:13)
[2024-11-16] MEDS ORDERED: TAMS1CAP25 PO (23:13)
[2024-11-16] MEDS ORDERED: CARB25TA77 PO (23:13)
[2024-11-16] MEDS ORDERED: METF-929 PO (23:13)
[2024-11-16] MEDS ORDERED: CLOP75TA28 PO (23:47)
[2024-11-16] MEDS ORDERED: TRAM50TA2 PO (23:47)
[2024-11-16] MEDS ORDERED: LORA-1121 PO (23:47)
[2024-11-16] MEDS: cefTRIAXone 1GM/50ML D5W 50 ML IV ONE (23:48)
[2024-11-16] MEDS: SODIUM CHLOR 0.9% PF (SALINE LOCK) 10ML VIAL/SYR IV SCH (23:48)
[2024-11-16] MEDS: ATORVASTATIN 20 MG TAB PO SCH (23:48)
[2024-11-16] MEDS: CARVEDILOL 3.125 MG TAB PO SCH (23:49)
[2024-11-16] MEDS: CARBIDOPA W LEVODOPA 25/100mg TABLET PO SCH (23:49)
[2024-11-17] MEDS: InsuLIN REG 1unit/0.01ml Soln (100units/ml) SC SCH (06:13)
[2024-11-17 07:52] LABS: Basophils # (auto) 0.1 10 ^3/uL (0-0.2); Basophils % (auto) 0.7 % (0.0-2.0); Eosinophils # (auto) 0.4 10 ^3/uL (0-0.8); Hematocrit 40.9 % (41.0-53.0); Hemoglobin 13.9 g/dL (13.5-17.5); Lymphocytes # (auto) 2.5 10 ^3/uL (0.4-5.4); Lymphocytes % (auto) 28.1 % (10.0-50.0); Mean Corpuscular Hemoglobin 32.4 pg (28.0-32.0); Mean Corpuscular Hgb Conc. 34.1 g/dL (32.0-36.0); Mean Corpuscular Volume 95.1 fL (80.0-100.0); Monocytes # (auto) 1.5 10 ^3/uL (0-1.3); Monocytes % (auto) 17.4 % (0.0-12.0); Neutrophils # (auto) 4.4 10 ^3/uL (1.6-8.6); Neutrophils % (auto) 49.8 % (37.0-80.0); Platelet Count (auto) 228 10^3/uL (140-450); Red Cell Distribution Width 14.4 % (11.8-14.3); White Blood Cell 8.8 10^3/uL (4.4-10.8)
[2024-11-17 08:30] LABS: Albumin 4.7 g/dL (3.2-4.8); Alkaline Phosphatase 72 U/L (46-116); Anion Gap 12 (5-15); Aspartate Aminotransferase 16 U/L (13-40); BUN/Creatinine Ratio 10.6 (10.0-20.0); Blood Urea Nitrogen 9 mg/dL (9-23); Carbon Dioxide 23 mmol/L (20-31); Chloride 100 mmol/L (98-107); Glucose 135 mg/dL (74-106); Potassium 3.6 mmol/L (3.5-5.1); Sodium 135 mmol/L (136-145); Total Protein 7.7 g/dL (5.7-8.2)
[2024-11-17 08:31] LABS: Alanine Aminotransferase < 9 U/L (7-40); Bilirubin, Total 1.9 mg/dL (0.2-1.0)
[2024-11-17 09:00] VITALS: BP 136/68; PULSE 92; RESP 18; TEMP 97.7; O2SAT 95
[2024-11-17] MEDS: ASPirin 81 mg TAB PO SCH (09:27)
[2024-11-17] MEDS: cefTRIAXone 1GM/50ML D5W 50 ML IV SCH (09:28)
[2024-11-17 12:55] VITALS: BP 125/95; PULSE 84; RESP 18; TEMP 97.4; O2SAT 95
--- NOTE | 2024-11-17 13:05 | DVHPN2 ---
Reviewed: Care Plan, H&P, Labs, Medications, Previous Orders, Radiology Changes from previous H/P or p: No Changes Eyes: No Pain, No Vision change, No Conjunctivae inflammation, No Eyelid inflammation, No Other, No Redness ENT: No Ear pain, No Ear discharge, No Nose pain, No Nose discharge, No Nose congestion, No Mouth pain, No Mouth swelling, No Throat pain, No Throat swelling, No Other Cardiovascular: No Chest Pain, No Palpitations, No Orthopnea, No Paroxysmal Noc. Dyspnea, No Edema, No Lt Headedness, No Other Respiratory: No Cough, No Dry, No Shortness of breath, No SOB with excertion, No Wheezing, No Hemoptysis, No Pleuritic Pain, No Sputum, No Other Gastrointestinal: No Nausea, No Vomiting; Abdominal Pain; No Diarrhea, No Constipation, No Melena, No Hematochezia, No Other Genitourinary: No Dysuria, No Frequency, No Incontinence, No Hematuria, No Retention, No Other Musculoskeletal: No other, No neck pain, No shoulder pain, No arm pain, No back pain, No hand pain, No leg pain, No foot pain Skin: No Rash, No Lesions, No Jaundice, No Bruising, No Other Objective Vitals Vital Signs Date Time Temp Pulse Resp B/P (MAP) Pulse Ox O2 Delivery O2 Flow Rate FiO2 11/17/24 12:55 97.4 84 18 125/95 (105) 95 97.4 11/17/24 08:01 Room Air* 0 21 Intake/Output Intake and Output 11/17/24 07:00 Intake Total 300 ml Output Total 3 ml Balance 297 ml Intake Oral 250 ml IV Total 50 ml Output Urine Total 3 ml Medications Current Medications Medications Dose Ordered Sig/Elana Route Start Time Stop Time Status Last Admin Dose Admin Atorvastatin Calcium 10 mg HS PO 11/16/24 22:00 11/16/24 23:48 10 MG Aspirin 81 mg DAILY PO 11/17/24 10:00 11/17/24 09:27 81 MG Carvedilol 3.125 mg Q12HR PO 11/16/24 22:00 11/17/24 09:27 3.125 MG Ceftriaxone Sodium 50 ml @ 100 mls/hr DAILY@09 IV 11/17/24 09:00 11/17/24 09:28 100 MLS/HR Carbidopa/Levodopa 1 tab QID PO 11/16/24 22:00 11/17/24 12:38 1 TAB Tamsulosin HCl 0.4 mg QPM PO 11/17/24 18:00 Hydralazine HCl 10 mg Q6HP PRN IV 11/16/24 19:15 Diagnostic Test (Pha) 1 strip ACHS 11/16/24 22:00 11/17/24 11:26 1 STRIP Insulin Human Regular HS SC 11/16/24 22:00 Insulin Human Regular AC SC 11/17/24 07:00 11/17/24 11:27 3 UNITS Dextrose 50 ml UD PRN IV 11/16/24 19:15 Sodium Chloride 10 ml Q8HR IV 11/16/24 22:00 11/17/24 12:41 10 ML Acetaminophen/ Hydrocodone Bitart 1 tab Q4HP PRN PO 11/16/24 19:15 Ondansetron HCl 4 mg Q4HP PRN IV 11/16/24 19:15 Docusate Sodium 100 mg BIDPRN PRN PO 11/16/24 19:15 Acetaminophen 650 mg Q6HP PRN PO 11/16/24 19:15 Nitroglycerin 0.4 mg Q5MINP PRN SL 11/16/24 20:15 Morphine Sulfate 2 mg Q30M PRN IV 11/16/24 20:15 Laboratory Results Laboratory Tests 11/17/24 07:20 Chemistry Test 11/16/24 15:03 11/17/24 07:20 Albumin 4.3 g/dL (3.2-4.8) 4.7 g/dL (3.2-4.8) Calcium Level 9.6 mg/dL (8.7-10.4) 10.0 mg/dL (8.7-10.4) Total Protein 6.8 g/dL (5.7-8.2) 7.7 g/dL (5.7-8.2) Coagulation Test 11/16/24 15:03 Prothrombin Time 10.5 sec (9.3-11.8) Prothrombin Time INR 0.99 (0.9-1.15) Activated Partial Thromboplast Time 27.2 SEC (24.5-34.5) LFT Test 11/16/24 15:03 11/17/24 07:20 Alanine Aminotransferase (ALT) 17 U/L (7-40) < 9 U/L (7-40) Alkaline Phosphatase 78 U/L (46-116) 72 U/L (46-116) Aspartate Amino Transferase (AST) 16 U/L (13-40) 16 U/L (13-40) Total Bilirubin 1.3 mg/dL (0.2-1.0) H 1.9 mg/dL (0.2-1.0) H Urinalysis Test 11/16/24 16:02 Urine Color Yellow (Yellow) Urine Clarity Clear (Clear) Urine pH 5.5 (5.0-9.0) Urine Specific [place] 1.045 (1.001-1.035) Urine Protein Trace (Negative) H Urine Ketones Negative (Negative) Urine Blood Negative /uL (Negative) Urine Nitrite 2+ (Negative) H Urine Bilirubin Negative (Negative) Urine Urobilinogen Normal mg/dL (Negative) Urine Leukocyte Esterase 2+ /uL (Negative) Urine RBC 1 /hpf (0 - 3) Urine Microscopic WBC 96 /HPF (0-3) H Urine Squamous Epithelial Cells Few /hpf (<5) Urine Bacteria None seen /hpf (None Seen) Urine Mucus Few (None Seen) Urine Glucose Normal mg/dL (Normal) Microbiology Microbiology Date/Time Source Procedure Growth Status 11/16/24 16:02 Voided Urine Urine Culture - Preliminary Resulted Labs and/or images reviewed: Labs reviewed by me, Image(s) reviewed by me Assessment/Plan Assessment/Plan Sepsis secondary to urinary tract infection: Blood cultures urine cultures Rocephin Acute metabolic encephalopathy Acute dehydration: IV fluids History of prostate cancer CHF COPD Hypertension Hypercholesterolemia History of fall two weeks ago Left upper quadrant pain: Will order CT chest abdomen pelvis without contrast Time spent 65 minutes Patient is full code Advanced care planning time 20 minutes Patient is hospice revoked Plan discussed with: Patient My Orders Orders - MIGNON ZELAYA MD Procedure Category Date Status Time Blood Culture RICKEY 11/17/24 Verified 13:03 Date of Service: Nov 17, 2024 Billing Provider: MIGNON ZELAYA MD Common Visit Codes: [id number] CARE 30-74 MIN MIGNON ZELAYA MD Nov 17, 2024 13:05
--- NOTE | 2024-11-17 15:28 | DVH ---
Procedure: CT CHST AB PEL WO CON-NO IV/ORAL 11/17/2024 01:37 PM Indication: Left upper quadrant pain status post mechanical fall Comparison Study: CT scan dated 11/16/2024 Technique: Axial images were obtained and reformatted in coronal and sagittal planes. All CT scans at this medical facility are performed using dose modulation techniques as appropriate t o a performed exam including the following: Automated exposure control was utilized; adjustment of th e MA and/or KV according to patient size; and use of iterative reconstruction technique. CT Dose: CTDI volume is 18.86 mGy. Dose-length product is 1324.0 mGy*cm FINDINGS: Lower neck: Unremarkable. Cardiomediastinal: The heart is normal in size. Median sternotomy wires and mediastinal vascular clip s are seen. Coronary artery calcification/ stenting. 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 No mediastinal lymphadenopathy. Lungs: Mild bibasilar pulmonary opacities are seen. No pleural effusion. No pneumothorax. Hepatobiliary: Gallbladder is surgically absent. Spleen: Unremarkable. Pancreas: Unremarkable. Adrenal Glands: Unremarkable. tract: The kidneys are normal in size bilaterally without hydronephrosis or nephrolithiasis. Multi ple bilateral renal cysts are seen measuring up to 3 cm. Homogeneous increased density of bladder lum en. The bladder is incompletely distended. GI tract: The stomach is grossly normal in appearance. No evidence of small bowel obstruction. The l arge bowel is unremarkable. The appendix is not visualized. No inflammatory change is noted in the right lower quadrant. Lymphatics: No mesenteric, retroperitoneal or periportal lymphadenopathy. Vasculature: The abdominal aorta is normal in caliber. Diffuse calcified plaque formation is noted. Pelvic Organs: Unremarkable . Bones/soft tissues: Mild depression of the superior endplate of T11 with approximately 10% loss of he ight centrally and anteriorly without retropulsion. Multilevel degenerative disc disease and facet a rthropathy of the lumbar spine noted. Other: None. IMPRESSION: 1. Age-indeterminate, possibly acute or subacute mild depression of the superior endplate of T11 with approximately 10% loss of height centrally and anteriorly without retropulsion. 2. Nondistended urinary bladder containing homogeneous hyperdense material in its lumen. Correlate wi th hematuria. Further evaluation with ultrasound could be completed if clinically indicated. 3. No hydronephrosis or hydroureter. No calculi. Several bilateral renal measuring up to 3 cm, incom pletely evaluated without IV contrast. Recommend correlation with renal ultrasound. 4. Mild bibasilar pulmonary opacities likely subsegmental atelectasis. 5. Mild fusiform aneurysm of the ascending aorta, 3.9 cm in transverse.
[2024-11-17] MEDS: TAMSULOSIN HYDROCHLORIDE 0.4 MG CAP PO SCH (16:42)
[2024-11-17 16:55] VITALS: BP 143/85; PULSE 75; RESP 18; TEMP 97.6; O2SAT 94
[2024-11-17 21:00] VITALS: BP 163/79; PULSE 93; RESP 18; TEMP 97.9; O2SAT 95
[2024-11-18 01:00] VITALS: BP 142/86; PULSE 94; RESP 18; TEMP 97.6; O2SAT 96
[2024-11-18 09:00] VITALS: BP 133/83; PULSE 85; RESP 18; TEMP 98.1; O2SAT 92
--- NOTE | 2024-11-18 10:00 | DVHPN2 ---
Reviewed: Care Plan, H&P, Labs, Medications, Previous Orders, Radiology Changes from previous H/P or p: No Changes Eyes: No Pain, No Vision change, No Conjunctivae inflammation, No Eyelid inflammation, No Other, No Redness ENT: No Ear pain, No Ear discharge, No Nose pain, No Nose discharge, No Nose congestion, No Mouth pain, No Mouth swelling, No Throat pain, No Throat swelling, No Other Cardiovascular: No Chest Pain, No Palpitations, No Orthopnea, No Paroxysmal Noc. Dyspnea, No Edema, No Lt Headedness, No Other Respiratory: No Cough, No Dry, No Shortness of breath, No SOB with excertion, No Wheezing, No Hemoptysis, No Pleuritic Pain, No Sputum, No Other Gastrointestinal: No Nausea, No Vomiting; Abdominal Pain; No Diarrhea, No Constipation, No Melena, No Hematochezia, No Other Genitourinary: No Dysuria, No Frequency, No Incontinence, No Hematuria, No Retention, No Other Musculoskeletal: No other, No neck pain, No shoulder pain, No arm pain, No back pain, No hand pain, No leg pain, No foot pain Skin: No Rash, No Lesions, No Jaundice, No Bruising, No Other Objective Vitals Vital Signs Date Time Temp Pulse Resp B/P (MAP) Pulse Ox O2 Delivery O2 Flow Rate FiO2 11/18/24 01:00 97.6 94 18 142/86 (104) 96 97.6 11/17/24 20:00 Room Air* 0 21 Intake/Output Intake and Output 11/18/24 07:00 Intake Total 880 ml Output Total 1004 ml Balance -124 ml Intake Oral 830 ml IV Total 50 ml Output Urine Total 1004 ml Medications Current Medications Medications Dose Ordered Sig/Elana Route Start Time Stop Time Status Last Admin Dose Admin Atorvastatin Calcium 10 mg HS PO 11/16/24 22:00 11/17/24 21:43 10 MG Aspirin 81 mg DAILY PO 11/17/24 10:00 11/17/24 09:27 81 MG Carvedilol 3.125 mg Q12HR PO 11/16/24 22:00 11/17/24 21:43 3.125 MG Ceftriaxone Sodium 50 ml @ 100 mls/hr DAILY@09 IV 11/17/24 09:00 11/17/24 09:28 100 MLS/HR Carbidopa/Levodopa 1 tab QID PO 11/16/24 22:00 11/18/24 06:13 1 TAB Tamsulosin HCl 0.4 mg QPM PO 11/17/24 18:00 11/17/24 16:42 0.4 MG Hydralazine HCl 10 mg Q6HP PRN IV 11/16/24 19:15 Diagnostic Test (Pha) 1 strip ACHS 11/16/24 22:00 11/18/24 06:29 1 STRIP Insulin Human Regular HS SC 11/16/24 22:00 11/17/24 21:40 2 UNITS Insulin Human Regular AC SC 11/17/24 07:00 11/18/24 06:33 2 UNITS Dextrose 50 ml UD PRN IV 11/16/24 19:15 Sodium Chloride 10 ml Q8HR IV 11/16/24 22:00 11/17/24 21:25 10 ML Acetaminophen/ Hydrocodone Bitart 1 tab Q4HP PRN PO 11/16/24 19:15 Ondansetron HCl 4 mg Q4HP PRN IV 11/16/24 19:15 Docusate Sodium 100 mg BIDPRN PRN PO 11/16/24 19:15 Acetaminophen 650 mg Q6HP PRN PO 11/16/24 19:15 Nitroglycerin 0.4 mg Q5MINP PRN SL 11/16/24 20:15 Morphine Sulfate 2 mg Q30M PRN IV 11/16/24 20:15 Laboratory Results Laboratory Tests 11/17/24 07:20 Urinalysis Test 11/16/24 16:02 Urine Color Yellow (Yellow) Urine Clarity Clear (Clear) Urine pH 5.5 (5.0-9.0) Urine Specific [place] 1.045 (1.001-1.035) Urine Protein Trace (Negative) H Urine Ketones Negative (Negative) Urine Blood Negative /uL (Negative) Urine Nitrite 2+ (Negative) H Urine Bilirubin Negative (Negative) Urine Urobilinogen Normal mg/dL (Negative) Urine Leukocyte Esterase 2+ /uL (Negative) Urine RBC 1 /hpf (0 - 3) Urine Microscopic WBC 96 /HPF (0-3) H Urine Squamous Epithelial Cells Few /hpf (<5) Urine Bacteria None seen /hpf (None Seen) Urine Mucus Few (None Seen) Urine Glucose Normal mg/dL (Normal) Microbiology Microbiology Date/Time Source Procedure Growth Status 11/16/24 16:02 Voided Urine Urine Culture - Preliminary Resulted Labs and/or images reviewed: Labs reviewed by me, Image(s) reviewed by me Assessment/Plan Assessment/Plan Sepsis secondary to urinary tract infection: Blood cultures pending urine culture pending, continue Rocephin Acute metabolic encephalopathy Acute dehydration: IV fluids History of prostate cancer status post radiation therapy and surgery 2013 CHF ejection fraction 50% History of [place] status post stents COPD Hypertension Hypercholesterolemia History of fall two weeks ago Recurrent falls Fracture T11 old Diverticulosis History of spine surgery Parkinson's disease Dementia Time spent [address] Caleb hartman Patient's cardiology Dr. 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
[2024-11-18] MEDS: ERTAPENEM SOD INJ 1 GM in SODIUM CHL 0.9% 50 ML IV ONE (11:40)
[2024-11-18 17:00] VITALS: BP 133/63; PULSE 65; RESP 20; TEMP 97.9; O2SAT 95
[2024-11-18 21:00] VITALS: BP 127/76; PULSE 94; RESP 18; TEMP 98.3; O2SAT 90
[2024-11-19] VITALS (7 sets, daily range): BP systolic 116–158; BP diastolic 62–91; PULSE 55–97; RESP 17–20; TEMP 97–97.8; O2SAT 93–100
[2024-11-19] MEDS: ERTAPENEM SOD INJ 1 GM in SODIUM CHL 0.9% 50 ML IV SCH (10:54)
--- NOTE | 2024-11-19 11:58 | DVHPN2 ---
Reviewed: Care Plan, H&P, Labs, Medications, Previous Orders, Radiology Changes from previous H/P or p: No Changes Eyes: No Pain, No Vision change, No Conjunctivae inflammation, No Eyelid inflammation, No Other, No Redness ENT: No Ear pain, No Ear discharge, No Nose pain, No Nose discharge, No Nose congestion, No Mouth pain, No Mouth swelling, No Throat pain, No Throat swelling, No Other Cardiovascular: No Chest Pain, No Palpitations, No Orthopnea, No Paroxysmal Noc. Dyspnea, No Edema, No Lt Headedness, No Other Respiratory: No Cough, No Dry, No Shortness of breath, No SOB with excertion, No Wheezing, No Hemoptysis, No Pleuritic Pain, No Sputum, No Other Gastrointestinal: No Nausea, No Vomiting; Abdominal Pain; No Diarrhea, No Constipation, No Melena, No Hematochezia, No Other Genitourinary: No Dysuria, No Frequency, No Incontinence, No Hematuria, No Retention, No Other Musculoskeletal: No other, No neck pain, No shoulder pain, No arm pain, No back pain, No hand pain, No leg pain, No foot pain Skin: No Rash, No Lesions, No Jaundice, No Bruising, No Other Objective Vitals Vital Signs Date Time Temp Pulse Resp B/P (MAP) Pulse Ox O2 Delivery O2 Flow Rate FiO2 11/19/24 10:53 91 127/86 11/19/24 08:33 97.5 19 95 97.5 11/19/24 08:00 Room Air* 0 21 Intake/Output Intake and Output 11/19/24 07:00 Intake Total 770 ml Balance 770 ml Intake Oral 670 ml IV Total 100 ml # Voids 8 Medications Current Medications Medications Dose Ordered Sig/Elana Route Start Time Stop Time Status Last Admin Dose Admin Atorvastatin Calcium 10 mg HS PO 11/16/24 22:00 11/18/24 21:53 10 MG Aspirin 81 mg DAILY PO 11/17/24 10:00 11/19/24 10:52 81 MG Carvedilol 3.125 mg Q12HR PO 11/16/24 22:00 11/19/24 10:53 3.125 MG Carbidopa/Levodopa 1 tab QID PO 11/16/24 22:00 11/19/24 06:18 1 TAB Tamsulosin HCl 0.4 mg QPM PO 11/17/24 18:00 11/18/24 17:35 0.4 MG Hydralazine HCl 10 mg Q6HP PRN IV 11/16/24 19:15 Diagnostic Test (Pha) 1 strip ACHS 11/16/24 22:00 11/19/24 10:55 1 STRIP Insulin Human Regular HS SC 11/16/24 22:00 11/18/24 21:43 2 UNITS Insulin Human Regular AC SC 11/17/24 07:00 11/19/24 06:20 3 UNITS Dextrose 50 ml UD PRN IV 11/16/24 19:15 Sodium Chloride 10 ml Q8HR IV 11/16/24 22:00 11/19/24 06:18 10 ML Acetaminophen/ Hydrocodone Bitart 1 tab Q4HP PRN PO 11/16/24 19:15 Ondansetron HCl 4 mg Q4HP PRN IV 11/16/24 19:15 Docusate Sodium 100 mg BIDPRN PRN PO 11/16/24 19:15 Acetaminophen 650 mg Q6HP PRN PO 11/16/24 19:15 Nitroglycerin 0.4 mg Q5MINP PRN SL 11/16/24 20:15 Morphine Sulfate 2 mg Q30M PRN IV 11/16/24 20:15 Ertapenem 1 gm/ Sodium Chloride 50 ml @ 100 mls/hr DAILY IV 11/19/24 10:00 11/19/24 10:54 100 MLS/HR Laboratory Results Laboratory Tests 11/17/24 07:20 Urinalysis Test 11/16/24 16:02 Urine Color Yellow (Yellow) Urine Clarity Clear (Clear) Urine pH 5.5 (5.0-9.0) Urine Specific [place] 1.045 (1.001-1.035) Urine Protein Trace (Negative) H Urine Ketones Negative (Negative) Urine Blood Negative /uL (Negative) Urine Nitrite 2+ (Negative) H Urine Bilirubin Negative (Negative) Urine Urobilinogen Normal mg/dL (Negative) Urine Leukocyte Esterase 2+ /uL (Negative) Urine RBC 1 /hpf (0 - 3) Urine Microscopic WBC 96 /HPF (0-3) H Urine Squamous Epithelial Cells Few /hpf (<5) Urine Bacteria None seen /hpf (None Seen) Urine Mucus Few (None Seen) Urine Glucose Normal mg/dL (Normal) Microbiology Microbiology Date/Time Source Procedure Growth Status 11/17/24 14:33 Blood Blood Culture - Preliminary NO GROWTH AFTER 24 HOURS OF INCUBATION. Resulted 11/16/24 16:02 Voided Urine Urine Culture - Preliminary Escherichia coli - ESBL Resulted Labs and/or images reviewed: Labs reviewed by me, Image(s) reviewed by me Assessment/Plan Assessment/Plan Sepsis secondary to urinary tract infection: Blood cultures negative, urine culture growing ESBL E coli Acute urinary tract infection urine cultures growing ESBL E coli: Start Invanz 1 g IV daily for three weeks Acute metabolic encephalopathy Acute dehydration: IV fluids History of prostate cancer status post radiation therapy and surgery 2013 CHF ejection fraction 50% History of [place] status post stents COPD Hypertension Hypercholesterolemia History of fall two weeks ago Recurrent falls Old fracture T11 Diverticulosis History of spine surgery Parkinson's disease Dementia Time spent [address] Caleb hartman Patient's cardiology Dr. 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
[2024-11-19] MEDS: CLOPIDOGREL BISULFATE 75 MG TAB PO ONE (15:11)
[2024-11-20] VITALS (8 sets, daily range): BP systolic 117–159; BP diastolic 65–86; PULSE 58–90; RESP 16–20; TEMP 97.8–98.5; O2SAT 92–95
[2024-11-20] MEDS: CLOPIDOGREL BISULFATE 75 MG TAB PO SCH (10:25)
--- NOTE | 2024-11-20 11:54 | DVHPN2 ---
Reviewed: Care Plan, H&P, Labs, Medications, Previous Orders, Radiology Changes from previous H/P or p: No Changes Eyes: No Pain, No Vision change, No Conjunctivae inflammation, No Eyelid inflammation, No Other, No Redness ENT: No Ear pain, No Ear discharge, No Nose pain, No Nose discharge, No Nose congestion, No Mouth pain, No Mouth swelling, No Throat pain, No Throat swelling, No Other Cardiovascular: No Chest Pain, No Palpitations, No Orthopnea, No Paroxysmal Noc. Dyspnea, No Edema, No Lt Headedness, No Other Respiratory: No Cough, No Dry, No Shortness of breath, No SOB with excertion, No Wheezing, No Hemoptysis, No Pleuritic Pain, No Sputum, No Other Gastrointestinal: No Nausea, No Vomiting; Abdominal Pain; No Diarrhea, No Constipation, No Melena, No Hematochezia, No Other Genitourinary: No Dysuria, No Frequency, No Incontinence, No Hematuria, No Retention, No Other Musculoskeletal: No other, No neck pain, No shoulder pain, No arm pain, No back pain, No hand pain, No leg pain, No foot pain Skin: No Rash, No Lesions, No Jaundice, No Bruising, No Other Objective Vitals Vital Signs Date Time Temp Pulse Resp B/P (MAP) Pulse Ox O2 Delivery O2 Flow Rate FiO2 11/20/24 10:26 82 143/83 11/20/24 08:47 98.1 16 94 98.1 11/20/24 08:00 Room Air* 0 21 Intake/Output Intake and Output 11/20/24 07:00 Intake Total 1400 ml Output Total 4 ml Balance 1396 ml Intake Oral 1350 ml IV Total 50 ml Output Urine Total 4 ml # Bowel Movements 2 Medications Current Medications Medications Dose Ordered Sig/Elana Route Start Time Stop Time Status Last Admin Dose Admin Atorvastatin Calcium 10 mg HS PO 11/16/24 22:00 11/19/24 21:35 10 MG Aspirin 81 mg DAILY PO 11/17/24 10:00 11/19/24 10:52 81 MG Carvedilol 3.125 mg Q12HR PO 11/16/24 22:00 11/20/24 10:26 3.125 MG Carbidopa/Levodopa 1 tab QID PO 11/16/24 22:00 11/20/24 06:46 1 TAB Tamsulosin HCl 0.4 mg QPM PO 11/17/24 18:00 11/19/24 18:12 0.4 MG Hydralazine HCl 10 mg Q6HP PRN IV 11/16/24 19:15 Diagnostic Test (Pha) 1 strip ACHS 11/16/24 22:00 11/20/24 06:29 1 STRIP Insulin Human Regular HS SC 11/16/24 22:00 11/19/24 21:26 2 UNITS Insulin Human Regular AC SC 11/17/24 07:00 11/19/24 17:24 2 UNITS Dextrose 50 ml UD PRN IV 11/16/24 19:15 Sodium Chloride 10 ml Q8HR IV 11/16/24 22:00 11/20/24 06:00 10 ML Acetaminophen/ Hydrocodone Bitart 1 tab Q4HP PRN PO 11/16/24 19:15 Ondansetron HCl 4 mg Q4HP PRN IV 11/16/24 19:15 Docusate Sodium 100 mg BIDPRN PRN PO 11/16/24 19:15 Acetaminophen 650 mg Q6HP PRN PO 11/16/24 19:15 Nitroglycerin 0.4 mg Q5MINP PRN SL 11/16/24 20:15 Morphine Sulfate 2 mg Q30M PRN IV 11/16/24 20:15 Ertapenem 1 gm/ Sodium Chloride 50 ml @ 100 mls/hr DAILY IV 11/19/24 10:00 11/20/24 10:26 100 MLS/HR Clopidogrel Bisulfate 75 mg DAILY PO 11/20/24 10:00 11/20/24 10:25 75 MG Laboratory Results Laboratory Tests 11/17/24 07:20 Urinalysis Test 11/16/24 16:02 Urine Color Yellow (Yellow) Urine Clarity Clear (Clear) Urine pH 5.5 (5.0-9.0) Urine Specific [place] 1.045 (1.001-1.035) Urine Protein Trace (Negative) H Urine Ketones Negative (Negative) Urine Blood Negative /uL (Negative) Urine Nitrite 2+ (Negative) H Urine Bilirubin Negative (Negative) Urine Urobilinogen Normal mg/dL (Negative) Urine Leukocyte Esterase 2+ /uL (Negative) Urine RBC 1 /hpf (0 - 3) Urine Microscopic WBC 96 /HPF (0-3) H Urine Squamous Epithelial Cells Few /hpf (<5) Urine Bacteria None seen /hpf (None Seen) Urine Mucus Few (None Seen) Urine Glucose Normal mg/dL (Normal) Microbiology Microbiology Date/Time Source Procedure Growth Status 11/17/24 14:33 Blood Blood Culture - Preliminary NO GROWTH AFTER 48 HOURS OF INCUBATION. Resulted 11/16/24 16:02 Voided Urine Urine Culture - Final Escherichia coli - ESBL Proteus mirabilis Complete Labs and/or images reviewed: Labs reviewed by me, Image(s) reviewed by me Assessment/Plan Assessment/Plan Sepsis secondary to complicated urinary tract infection: Blood cultures negative, urine culture growing ESBL E coli Acute urinary tract infection urine cultures growing ESBL E coli and Proteus mirabilis: Start Invanz 1 g IV daily for three weeks Acute metabolic encephalopathy Acute dehydration: IV fluids History of prostate cancer status post radiation therapy and surgery 2013 CHF ejection fraction 50% History of CT status post stents COPD Hypertension Hypercholesterolemia History of fall two weeks ago Recurrent falls Old fracture T11 Diverticulosis History of spine surgery Parkinson's disease Dementia Time spent [address] Caleb hartman Patient's cardiology Dr. 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
[2024-11-21] VITALS (7 sets, daily range): BP systolic 98–129; BP diastolic 54–75; PULSE 51–79; RESP 16–20; TEMP 97–98.3; O2SAT 90–98
--- NOTE | 2024-11-21 10:30 | DVHDS2 ---
Discharge Summary Date of Admission Nov 16, 2024 at 20:09 Date of Discharge: Nov 21, 2024 Admitting Diagnosis Altered mental status and confusion Wounds: None Labs/Diagnostic Data: Laboratory Results Test 11/21/24 05:07 11/17/24 07:20 11/16/24 16:02 11/16/24 15:03 POC Glucose 135 mg/dl (70-106) White Blood Count 8.8 10^3/uL (4.4-10.8) Red Blood Count 4.30 10^6/uL (4.5-5.90) Hemoglobin 13.9 g/dL (13.5-17.5) Hematocrit 40.9 % (41.0-53.0) Mean Corpuscular Volume 95.1 fL (80.0-100.0) Mean Corpuscular Hemoglobin 32.4 pg (28.0-32.0) Mean Corpuscular Hemoglobin Concent 34.1 g/dL (32.0-36.0) Red Cell Distribution Width 14.4 % (11.8-14.3) Platelet Count 228 10^3/uL (140-450) Mean Platelet Volume 8.1 fL (6.9-10.8) Neutrophils (%) (Auto) 49.8 % (37.0-80.0) Lymphocytes (%) (Auto) 28.1 % (10.0-50.0) Monocytes (%) (Auto) 17.4 % (0.0-12.0) Eosinophils (%) (Auto) 4.0 % (0.0-7.0) Basophils (%) (Auto) 0.7 % (0.0-2.0) Neutrophils # (Auto) 4.4 10 ^3/uL (1.6-8.6) Lymphocytes # (Auto) 2.5 10 ^3/uL (0.4-5.4) Monocytes # (Auto) 1.5 10 ^3/uL (0-1.3) Eosinophils # (Auto) 0.4 10 ^3/uL (0-0.8) Basophils # (Auto) 0.1 10 ^3/uL (0-0.2) Nucleated Red Blood Cells 0.0 % Sodium Level 135 mmol/L (136-145) Potassium Level 3.6 mmol/L (3.5-5.1) Chloride Level 100 mmol/L (98-107) Carbon Dioxide Level 23 mmol/L (20-31) Anion Gap 12 (5-15) Blood Urea Nitrogen 9 mg/dL (9-23) Creatinine 0.85 mg/dL (0.700-1.30) Glomerular Filtration Rate Calc 88 mL/min (>90) BUN/Creatinine Ratio 10.6 (10.0-20.0) Serum Glucose 135 mg/dL (74-106) Calcium Level 10.0 mg/dL (8.7-10.4) Total Bilirubin 1.9 mg/dL (0.2-1.0) Aspartate Amino Transferase (AST) 16 U/L (13-40) Alanine Aminotransferase (ALT) < 9 U/L (7-40) Alkaline Phosphatase 72 U/L (46-116) Total Protein 7.7 g/dL (5.7-8.2) Albumin 4.7 g/dL (3.2-4.8) Urine Color Yellow (Yellow) Urine Clarity Clear (Clear) Urine pH 5.5 (5.0-9.0) Urine Specific [place] 1.045 (1.001-1.035) Urine Protein Trace (Negative) Urine Ketones Negative (Negative) Urine Blood Negative /uL (Negative) Urine Nitrite 2+ (Negative) Urine Bilirubin Negative (Negative) Urine Urobilinogen Normal mg/dL (Negative) Urine Leukocyte Esterase 2+ /uL (Negative) Urine RBC 1 /hpf (0 - 3) Urine Microscopic WBC 96 /HPF (0-3) Urine Squamous Epithelial Cells Few /hpf (<5) Urine Bacteria None seen /hpf (None Seen) Urine Mucus Few (None Seen) Urine Glucose Normal mg/dL (Normal) Prothrombin Time 10.5 sec (9.3-11.8) Prothrombin Time INR 0.99 (0.9-1.15) Activated Partial Thromboplast Time 27.2 SEC (24.5-34.5) Other Laboratory Tests 11/17/24 07:20 Brief Hx & Hospital Course: 79-year-old male with a history of prostate cancer status post radiation therapy and surgery in 2013 congestive heart failure history of UT with stents COPD hypertension hypercholesterolemia history of recurrent falls latest fall two weeks ago old fracture T11 diverticulosis history of spine surgery Parkinson's disease dementia brought in by family for altered mental status and confusion patient was found to have sepsis secondary to urinary tract infection blood cultures negative urine cultures growing ESBL E coli and Proteus. Placed on Invanz 1 g IV daily for three weeks and [facility] and for IV antibiotics. Magaly at the bedside and the plan is agreeable to her. Patient is hospice revoked and family does not want to place him back on hospice. General Condition poor but stable at the time of discharge Consults/Reason for consult none Operations or Procedures None Condition at Discharge: Poor Final Diagnosis/Problems List Sepsis secondary to complicated urinary tract infection: Blood cultures negative, urine culture growing ESBL E coli Acute urinary tract infection urine cultures growing ESBL E coli and Proteus mirabilis: Start Invanz 1 g IV daily for three weeks Acute metabolic encephalopathy Acute dehydration: IV fluids History of prostate cancer status post radiation therapy and surgery 2013 CHF ejection fraction 50% History of UT status post stents COPD Hypertension Hypercholesterolemia History of fall two weeks ago Recurrent falls Old fracture T11 Diverticulosis History of spine surgery Parkinson's disease Dementia Discharge Disposition: Assisted Facility Discharge Instruct/Medications Diet: Cardiac 2g Na,low cholest Activity: Light activity Follow Up/Referral: Follow up with the group home Medications: Invanz 1 g IV daily for three weeks for complicated UTI see list for other meds 39 (Time taken for discharge summary 39 minutes) Discharge Statement: "Patient was advised to return to the ER or call 911 if any headaches, dizziness, shortness of breath, chest pain, abdominal pain, bleeding, fevers, or worsening of medical condition. Patient was counseled about treatment plan, medications, possible side effects, patientverbalized understanding. All questions were answered to the best of my ability. This discharge took greater then 30 minutes in planning, reviewing documentation, counseling the patient, and discussing with other team members." ASSESSMENT ASSESSMENT Hospital Course Uneventful Assessment Sepsis secondary to complicated urinary tract infection: Blood cultures negative, urine culture growing ESBL E coli Acute urinary tract infection urine cultures growing ESBL E coli and Proteus mirabilis: Start Invanz 1 g IV daily for three weeks Acute metabolic encephalopathy Acute dehydration: IV fluids History of prostate cancer status post radiation therapy and surgery 2013 CHF ejection fraction 50% History of UT status post stents COPD Hypertension Hypercholesterolemia History of fall two weeks ago Recurrent falls Old fracture T11 Diverticulosis History of spine surgery Parkinson's disease Dementia Date of Service: Nov 21, 2024 Common Visit Codes: [id number] DISCH DAY >30min MIGNON ZELAYA MD Nov 21, 2024 10:30
[2024-11-21 12:33] LABS: COVID19 ANTIGEN SOFIA FIA NEGATIVE (NEGATIVE)
[2024-11-21] MEDS: LORazepam 2MG/ML-1ML VIAL IV PRN (16:16)
[2024-11-21] MEDS: FLUMAZENIL 0.1 MG/ML INJ 10ML MDV IV ONE (22:08)
[2024-11-22 01:00] VITALS: BP 118/68; PULSE 50; RESP 20; TEMP 97.1; O2SAT 99
[2024-11-22 08:00] VITALS: PULSE 90; RESP 20; O2SAT 99
[2024-11-22 09:00] VITALS: BP 130/89; PULSE 90; RESP 18; TEMP 98.7; O2SAT 94
--- NOTE | 2024-11-22 09:25 | DVHPN2 ---
Reviewed: Care Plan, H&P, Labs, Medications, Previous Orders, Radiology Changes from previous H/P or p: No Changes Eyes: No Pain, No Vision change, No Conjunctivae inflammation, No Eyelid inflammation, No Other, No Redness ENT: No Ear pain, No Ear discharge, No Nose pain, No Nose discharge, No Nose congestion, No Mouth pain, No Mouth swelling, No Throat pain, No Throat swelling, No Other Cardiovascular: No Chest Pain, No Palpitations, No Orthopnea, No Paroxysmal Noc. Dyspnea, No Edema, No Lt Headedness, No Other Respiratory: No Cough, No Dry, No Shortness of breath, No SOB with excertion, No Wheezing, No Hemoptysis, No Pleuritic Pain, No Sputum, No Other Gastrointestinal: No Nausea, No Vomiting; Abdominal Pain; No Diarrhea, No Constipation, No Melena, No Hematochezia, No Other Genitourinary: No Dysuria, No Frequency, No Incontinence, No Hematuria, No Retention, No Other Musculoskeletal: No other, No neck pain, No shoulder pain, No arm pain, No back pain, No hand pain, No leg pain, No foot pain Skin: No Rash, No Lesions, No Jaundice, No Bruising, No Other Objective Vitals Vital Signs Date Time Temp Pulse Resp B/P (MAP) Pulse Ox O2 Delivery O2 Flow Rate FiO2 11/22/24 01:00 97.1 50 20 118/68 (85) 99 97.1 11/21/24 20:00 Room Air* 0 21 Intake/Output Intake and Output 11/22/24 07:00 Intake Total 525 ml Balance 525 ml Intake Oral 475 ml IV Total 50 ml # Voids 5 Medications Current Medications Medications Dose Ordered Sig/Elana Route Start Time Stop Time Status Last Admin Dose Admin Atorvastatin Calcium 10 mg HS PO 11/16/24 22:00 11/20/24 21:48 10 MG Aspirin 81 mg DAILY PO 11/17/24 10:00 11/21/24 09:15 81 MG Carvedilol 3.125 mg Q12HR PO 11/16/24 22:00 11/20/24 21:50 3.125 MG Carbidopa/Levodopa 1 tab QID PO 11/16/24 22:00 11/21/24 12:37 1 TAB Tamsulosin HCl 0.4 mg QPM PO 11/17/24 18:00 11/20/24 18:46 0.4 MG Hydralazine HCl 10 mg Q6HP PRN IV 11/16/24 19:15 Diagnostic Test (Pha) 1 strip ACHS 11/16/24 22:00 11/22/24 06:53 1 STRIP Insulin Human Regular HS SC 11/16/24 22:00 11/20/24 21:54 2 UNITS Insulin Human Regular AC SC 11/17/24 07:00 11/22/24 06:53 2 UNITS Dextrose 50 ml UD PRN IV 11/16/24 19:15 Sodium Chloride 10 ml Q8HR IV 11/16/24 22:00 11/22/24 06:00 10 ML Acetaminophen/ Hydrocodone Bitart 1 tab Q4HP PRN PO 11/16/24 19:15 Ondansetron HCl 4 mg Q4HP PRN IV 11/16/24 19:15 Docusate Sodium 100 mg BIDPRN PRN PO 11/16/24 19:15 Acetaminophen 650 mg Q6HP PRN PO 11/16/24 19:15 Nitroglycerin 0.4 mg Q5MINP PRN SL 11/16/24 20:15 Morphine Sulfate 2 mg Q30M PRN IV 11/16/24 20:15 Ertapenem 1 gm/ Sodium Chloride 50 ml @ 100 mls/hr DAILY IV 11/19/24 10:00 11/21/24 09:10 100 MLS/HR Clopidogrel Bisulfate 75 mg DAILY PO 11/20/24 10:00 11/21/24 09:15 75 MG Laboratory Results Laboratory Tests 11/17/24 07:20 Urinalysis Test 11/16/24 16:02 Urine Color Yellow (Yellow) Urine Clarity Clear (Clear) Urine pH 5.5 (5.0-9.0) Urine Specific [place] 1.045 (1.001-1.035) Urine Protein Trace (Negative) H Urine Ketones Negative (Negative) Urine Blood Negative /uL (Negative) Urine Nitrite 2+ (Negative) H Urine Bilirubin Negative (Negative) Urine Urobilinogen Normal mg/dL (Negative) Urine Leukocyte Esterase 2+ /uL (Negative) Urine RBC 1 /hpf (0 - 3) Urine Microscopic WBC 96 /HPF (0-3) H Urine Squamous Epithelial Cells Few /hpf (<5) Urine Bacteria None seen /hpf (None Seen) Urine Mucus Few (None Seen) Urine Glucose Normal mg/dL (Normal) Microbiology Microbiology Date/Time Source Procedure Growth Status 11/17/24 14:33 Blood Blood Culture - Preliminary NO GROWTH AFTER 72 HOURS OF INCUBATION. Resulted 11/16/24 16:02 Voided Urine Urine Culture - Final Escherichia coli - ESBL Proteus mirabilis Complete Labs and/or images reviewed: Labs reviewed by me, Image(s) reviewed by me Assessment/Plan Assessment/Plan Sepsis secondary to complicated urinary tract infection: Blood cultures negative, urine culture growing ESBL E coli Acute urinary tract infection urine cultures growing ESBL E coli and Proteus mirabilis: Start Invanz 1 g IV daily for three weeks Acute metabolic encephalopathy Acute dehydration: IV fluids History of prostate cancer status post radiation therapy and surgery 2013 CHF ejection fraction 50% History of UT status post stents COPD Hypertension Hypercholesterolemia History of fall two weeks ago Recurrent falls Old fracture T11 Diverticulosis History of spine surgery Parkinson's disease Dementia Patient was discharged to nursing home facility on 11/21/2024 A[address]ing bed Examined today: No new complaints Plan discussed with: Patient My Orders Orders - MIGNON ZELAYA MD Procedure Category Date Status Time * Country Manager CONS 11/21/24 Transmitted Consult Discharge DISCHARGE 11/21/24 Transmitted 10:26 Pureed DIET 11/21/24 Transmitted Lunch Pt Request For Service PT 11/21/24 Logged 10:41 Date of Service: Nov 22, 2024 Billing Provider: MIGNON ZELAYA MD Common Visit Codes: [id number] INP/OBS CARE(HIGH) MIGNON ZELAYA MD Nov 22, 2024 09:25
[2024-11-22 13:00] VITALS: BP 141/74; PULSE 84; RESP 18; TEMP 98; O2SAT 96
[2024-11-22 20:00] VITALS: O2SAT 98
[2024-11-22 21:00] VITALS: BP 124/60; PULSE 52; RESP 20; TEMP 97.2; O2SAT 94
[2024-11-23] VITALS (8 sets, daily range): BP systolic 123–143; BP diastolic 70–86; PULSE 61–86; RESP 16–20; TEMP 97.7–98.4; O2SAT 92–99
--- NOTE | 2024-11-23 09:06 | DVHPN2 ---
Reviewed: Care Plan, H&P, Labs, Medications, Previous Orders, Radiology Changes from previous H/P or p: No Changes Eyes: No Pain, No Vision change, No Conjunctivae inflammation, No Eyelid inflammation, No Other, No Redness ENT: No Ear pain, No Ear discharge, No Nose pain, No Nose discharge, No Nose congestion, No Mouth pain, No Mouth swelling, No Throat pain, No Throat swelling, No Other Cardiovascular: No Chest Pain, No Palpitations, No Orthopnea, No Paroxysmal Noc. Dyspnea, No Edema, No Lt Headedness, No Other Respiratory: No Cough, No Dry, No Shortness of breath, No SOB with excertion, No Wheezing, No Hemoptysis, No Pleuritic Pain, No Sputum, No Other Gastrointestinal: No Nausea, No Vomiting; Abdominal Pain; No Diarrhea, No Constipation, No Melena, No Hematochezia, No Other Genitourinary: No Dysuria, No Frequency, No Incontinence, No Hematuria, No Retention, No Other Musculoskeletal: No other, No neck pain, No shoulder pain, No arm pain, No back pain, No hand pain, No leg pain, No foot pain Skin: No Rash, No Lesions, No Jaundice, No Bruising, No Other Objective Vitals Vital Signs Date Time Temp Pulse Resp B/P (MAP) Pulse Ox O2 Delivery O2 Flow Rate FiO2 11/23/24 08:00 65 20 92 Room Air* 0 21 11/23/24 05:00 98.4 125/83 (97) 98.4 Intake/Output Intake and Output 11/23/24 07:00 Intake Total 625 ml Balance 625 ml Intake Oral 575 ml IV Total 50 ml # Voids 8 # Bowel Movements 2 Medications Current Medications Medications Dose Ordered Sig/Elana Route Start Time Stop Time Status Last Admin Dose Admin Atorvastatin Calcium 10 mg HS PO 11/16/24 22:00 11/22/24 22:30 10 MG Aspirin 81 mg DAILY PO 11/17/24 10:00 11/22/24 10:29 81 MG Carvedilol 3.125 mg Q12HR PO 11/16/24 22:00 11/22/24 09:57 3.125 MG Carbidopa/Levodopa 1 tab QID PO 11/16/24 22:00 11/23/24 06:36 1 TAB Tamsulosin HCl 0.4 mg QPM PO 11/17/24 18:00 11/22/24 17:20 0.4 MG Hydralazine HCl 10 mg Q6HP PRN IV 11/16/24 19:15 Diagnostic Test (Pha) 1 strip ACHS 11/16/24 22:00 11/23/24 06:36 1 STRIP Insulin Human Regular HS SC 11/16/24 22:00 11/22/24 22:29 2 UNITS Insulin Human Regular AC SC 11/17/24 07:00 11/23/24 06:36 2 UNITS Dextrose 50 ml UD PRN IV 11/16/24 19:15 Sodium Chloride 10 ml Q8HR IV 11/16/24 22:00 11/23/24 06:00 10 ML Acetaminophen/ Hydrocodone Bitart 1 tab Q4HP PRN PO 11/16/24 19:15 Ondansetron HCl 4 mg Q4HP PRN IV 11/16/24 19:15 Docusate Sodium 100 mg BIDPRN PRN PO 11/16/24 19:15 Acetaminophen 650 mg Q6HP PRN PO 11/16/24 19:15 Nitroglycerin 0.4 mg Q5MINP PRN SL 11/16/24 20:15 Morphine Sulfate 2 mg Q30M PRN IV 11/16/24 20:15 Ertapenem 1 gm/ Sodium Chloride 50 ml @ 100 mls/hr DAILY IV 11/19/24 10:00 11/22/24 09:59 100 MLS/HR Clopidogrel Bisulfate 75 mg DAILY PO 11/20/24 10:00 11/22/24 09:58 75 MG Laboratory Results Laboratory Tests 11/17/24 07:20 Urinalysis Test 11/16/24 16:02 Urine Color Yellow (Yellow) Urine Clarity Clear (Clear) Urine pH 5.5 (5.0-9.0) Urine Specific [place] 1.045 (1.001-1.035) Urine Protein Trace (Negative) H Urine Ketones Negative (Negative) Urine Blood Negative /uL (Negative) Urine Nitrite 2+ (Negative) H Urine Bilirubin Negative (Negative) Urine Urobilinogen Normal mg/dL (Negative) Urine Leukocyte Esterase 2+ /uL (Negative) Urine RBC 1 /hpf (0 - 3) Urine Microscopic WBC 96 /HPF (0-3) H Urine Squamous Epithelial Cells Few /hpf (<5) Urine Bacteria None seen /hpf (None Seen) Urine Mucus Few (None Seen) Urine Glucose Normal mg/dL (Normal) Microbiology Microbiology Date/Time Source Procedure Growth Status 11/17/24 14:33 Blood Blood Culture - Final NO GROWTH AFTER 5 DAYS OF INCUBATION. Complete 11/16/24 16:02 Voided Urine Urine Culture - Final Escherichia coli - ESBL Proteus mirabilis Complete Labs and/or images reviewed: Labs reviewed by me, Image(s) reviewed by me Assessment/Plan Assessment/Plan Sepsis secondary to complicated urinary tract infection: Blood cultures negative, urine culture growing ESBL E coli Acute urinary tract infection urine cultures growing ESBL E coli and Proteus mirabilis: Start Invanz 1 g IV daily for three weeks Acute metabolic encephalopathy Acute dehydration: IV fluids History of prostate cancer status post radiation therapy and surgery 2013 CHF ejection fraction 50% History of [place] status post stents COPD Hypertension Hypercholesterolemia History of fall two weeks ago Recurrent falls Old fracture T11 Diverticulosis History of spine surgery Parkinson's disease Dementia [facility] Awaiting ISO bed in [facility] Examined today: No new complaints Plan discussed with: Patient Date of Service: Nov 23, 2024 Billing Provider: MIGNON ZELAYA MD Common Visit Codes: [id number] INP/OBS CARE(HIGH) MIGNON ZELAYA MD Nov 23, 2024 09:06
[2024-11-24 08:00] VITALS: RESP 18
[2024-11-24 09:23] VITALS: BP 141/76; PULSE 54; RESP 18; TEMP 97.7; O2SAT 96
--- NOTE | 2024-11-24 09:23 | DVHPN2 ---
Reviewed: Care Plan, H&P, Labs, Medications, Previous Orders, Radiology Changes from previous H/P or p: No Changes Eyes: No Pain, No Vision change, No Conjunctivae inflammation, No Eyelid inflammation, No Other, No Redness ENT: No Ear pain, No Ear discharge, No Nose pain, No Nose discharge, No Nose congestion, No Mouth pain, No Mouth swelling, No Throat pain, No Throat swelling, No Other Cardiovascular: No Chest Pain, No Palpitations, No Orthopnea, No Paroxysmal Noc. Dyspnea, No Edema, No Lt Headedness, No Other Respiratory: No Cough, No Dry, No Shortness of breath, No SOB with excertion, No Wheezing, No Hemoptysis, No Pleuritic Pain, No Sputum, No Other Gastrointestinal: No Nausea, No Vomiting; Abdominal Pain; No Diarrhea, No Constipation, No Melena, No Hematochezia, No Other Genitourinary: No Dysuria, No Frequency, No Incontinence, No Hematuria, No Retention, No Other Musculoskeletal: No other, No neck pain, No shoulder pain, No arm pain, No back pain, No hand pain, No leg pain, No foot pain Skin: No Rash, No Lesions, No Jaundice, No Bruising, No Other Objective Vitals Vital Signs Date Time Temp Pulse Resp B/P (MAP) Pulse Ox O2 Delivery O2 Flow Rate FiO2 11/23/24 22:00 98.2 74 16 140/70 (93) 97 98.2 11/23/24 20:00 Nasal Cannula* 2 28 Intake/Output Intake and Output 11/24/24 07:00 Intake Total 530 ml Output Total 0 ml Balance 530 ml Intake Oral 480 ml IV Total 50 ml Output Urine Total 0 ml # Voids 8 # Bowel Movements 1 Medications Current Medications Medications Dose Ordered Sig/Elana Route Start Time Stop Time Status Last Admin Dose Admin Atorvastatin Calcium 10 mg HS PO 11/16/24 22:00 11/22/24 22:30 10 MG Aspirin 81 mg DAILY PO 11/17/24 10:00 11/23/24 10:27 81 MG Carvedilol 3.125 mg Q12HR PO 11/16/24 22:00 11/23/24 10:27 3.125 MG Carbidopa/Levodopa 1 tab QID PO 11/16/24 22:00 11/24/24 06:10 1 TAB Tamsulosin HCl 0.4 mg QPM PO 11/17/24 18:00 11/23/24 17:15 0.4 MG Hydralazine HCl 10 mg Q6HP PRN IV 11/16/24 19:15 Diagnostic Test (Pha) 1 strip ACHS 11/16/24 22:00 11/24/24 06:24 1 STRIP Insulin Human Regular HS SC 11/16/24 22:00 11/22/24 22:29 2 UNITS Insulin Human Regular AC SC 11/17/24 07:00 11/24/24 06:06 2 UNITS Dextrose 50 ml UD PRN IV 11/16/24 19:15 Sodium Chloride 10 ml Q8HR IV 11/16/24 22:00 11/24/24 06:05 10 ML Acetaminophen/ Hydrocodone Bitart 1 tab Q4HP PRN PO 11/16/24 19:15 Ondansetron HCl 4 mg Q4HP PRN IV 11/16/24 19:15 Docusate Sodium 100 mg BIDPRN PRN PO 11/16/24 19:15 Acetaminophen 650 mg Q6HP PRN PO 11/16/24 19:15 Nitroglycerin 0.4 mg Q5MINP PRN SL 11/16/24 20:15 Morphine Sulfate 2 mg Q30M PRN IV 11/16/24 20:15 Ertapenem 1 gm/ Sodium Chloride 50 ml @ 100 mls/hr DAILY IV 11/19/24 10:00 11/23/24 10:28 100 MLS/HR Clopidogrel Bisulfate 75 mg DAILY PO 11/20/24 10:00 11/23/24 10:27 75 MG Laboratory Results Laboratory Tests 11/17/24 07:20 Urinalysis Test 11/16/24 16:02 Urine Color Yellow (Yellow) Urine Clarity Clear (Clear) Urine pH 5.5 (5.0-9.0) Urine Specific [place] 1.045 (1.001-1.035) Urine Protein Trace (Negative) H Urine Ketones Negative (Negative) Urine Blood Negative /uL (Negative) Urine Nitrite 2+ (Negative) H Urine Bilirubin Negative (Negative) Urine Urobilinogen Normal mg/dL (Negative) Urine Leukocyte Esterase 2+ /uL (Negative) Urine RBC 1 /hpf (0 - 3) Urine Microscopic WBC 96 /HPF (0-3) H Urine Squamous Epithelial Cells Few /hpf (<5) Urine Bacteria None seen /hpf (None Seen) Urine Mucus Few (None Seen) Urine Glucose Normal mg/dL (Normal) Microbiology Microbiology Date/Time Source Procedure Growth Status 11/17/24 14:33 Blood Blood Culture - Final NO GROWTH AFTER 5 DAYS OF INCUBATION. Complete 11/16/24 16:02 Voided Urine Urine Culture - Final Escherichia coli - ESBL Proteus mirabilis Complete Labs and/or images reviewed: Labs reviewed by me, Image(s) reviewed by me Assessment/Plan Assessment/Plan Sepsis secondary to complicated urinary tract infection: Blood cultures negative, urine culture growing ESBL E coli Acute urinary tract infection urine cultures growing ESBL E coli and Proteus mirabilis: Start Invanz 1 g IV daily for three weeks Acute metabolic encephalopathy Acute dehydration: IV fluids History of prostate cancer status post radiation therapy and surgery 2013 CHF ejection fraction 50% History of [place] status post stents COPD Hypertension Hypercholesterolemia History of fall two weeks ago Recurrent falls Old fracture T11 Diverticulosis History of spine surgery Parkinson's disease Dementia Patient [facility]24 Awaiting [facility] bed in [facility] Examined today: No new complaints Continue Current management Plan discussed with: Patient My Orders Orders - MIGNON ZELAYA MD Procedure Category Date Status Time * Property Loss Insurance Claim Adjuster CONS 11/23/24 Transmitted Consult Date of Service: Nov 24, 2024 Billing Provider: MIGNON ZELAYA MD Common Visit Codes: [id number] INP/OBS CARE(HIGH) MIGNON ZELAYA MD Nov 24, 2024 09:23
[2024-11-24 13:00] VITALS: BP 118/67; PULSE 53; RESP 16; TEMP 98.1; O2SAT 98
[2024-11-24 17:00] VITALS: BP 126/57; PULSE 49; RESP 17; TEMP 97.9; O2SAT 94
[2024-11-24 20:00] VITALS: PULSE 59; RESP 19; O2SAT 99
[2024-11-24 21:00] VITALS: BP 143/65; PULSE 61; RESP 18; TEMP 97.9; O2SAT 91
[2024-11-24] MEDS: MELATONIN 5 MG TAB PO ONE (23:16)
[2024-11-25] VITALS (8 sets, daily range): BP systolic 106–151; BP diastolic 51–79; PULSE 51–62; RESP 16–18; TEMP 97.4–101.1; O2SAT 93–97
--- NOTE | 2024-11-25 10:41 | DVHPN2 ---
Reviewed: Care Plan, H&P, Labs, Medications, Previous Orders, Radiology Changes from previous H/P or p: No Changes Eyes: No Pain, No Vision change, No Conjunctivae inflammation, No Eyelid inflammation, No Other, No Redness ENT: No Ear pain, No Ear discharge, No Nose pain, No Nose discharge, No Nose congestion, No Mouth pain, No Mouth swelling, No Throat pain, No Throat swelling, No Other Cardiovascular: No Chest Pain, No Palpitations, No Orthopnea, No Paroxysmal Noc. Dyspnea, No Edema, No Lt Headedness, No Other Respiratory: No Cough, No Dry, No Shortness of breath, No SOB with excertion, No Wheezing, No Hemoptysis, No Pleuritic Pain, No Sputum, No Other Gastrointestinal: No Nausea, No Vomiting; Abdominal Pain; No Diarrhea, No Constipation, No Melena, No Hematochezia, No Other Genitourinary: No Dysuria, No Frequency, No Incontinence, No Hematuria, No Retention, No Other Musculoskeletal: No other, No neck pain, No shoulder pain, No arm pain, No back pain, No hand pain, No leg pain, No foot pain Skin: No Rash, No Lesions, No Jaundice, No Bruising, No Other Objective Vitals Vital Signs Date Time Temp Pulse Resp B/P (MAP) Pulse Ox O2 Delivery O2 Flow Rate FiO2 11/25/24 08:00 18 Nasal Cannula* 3 32 11/25/24 05:00 97.5 55 151/75 (100) 96 97.5 Intake/Output Intake and Output 11/25/24 07:00 Intake Total 425 ml Output Total 200 ml Balance 225 ml Intake Oral 425 ml Output Urine Total 200 ml # Voids 2 Medications Current Medications Medications Dose Ordered Sig/Elana Route Start Time Stop Time Status Last Admin Dose Admin Atorvastatin Calcium 10 mg HS PO 11/16/24 22:00 11/22/24 22:30 10 MG Aspirin 81 mg DAILY PO 11/17/24 10:00 11/24/24 12:05 81 MG Carvedilol 3.125 mg Q12HR PO 11/16/24 22:00 11/24/24 12:04 3.125 MG Carbidopa/Levodopa 1 tab QID PO 11/16/24 22:00 11/25/24 06:09 1 TAB Tamsulosin HCl 0.4 mg QPM PO 11/17/24 18:00 11/24/24 17:59 0.4 MG Hydralazine HCl 10 mg Q6HP PRN IV 11/16/24 19:15 Diagnostic Test (Pha) 1 strip ACHS 11/16/24 22:00 11/25/24 06:10 1 STRIP Insulin Human Regular HS SC 11/16/24 22:00 11/24/24 23:24 2 UNITS Insulin Human Regular AC SC 11/17/24 07:00 11/25/24 06:10 2 UNITS Dextrose 50 ml UD PRN IV 11/16/24 19:15 Sodium Chloride 10 ml Q8HR IV 11/16/24 22:00 11/25/24 06:09 10 ML Acetaminophen/ Hydrocodone Bitart 1 tab Q4HP PRN PO 11/16/24 19:15 Ondansetron HCl 4 mg Q4HP PRN IV 11/16/24 19:15 Docusate Sodium 100 mg BIDPRN PRN PO 11/16/24 19:15 Acetaminophen 650 mg Q6HP PRN PO 11/16/24 19:15 Nitroglycerin 0.4 mg Q5MINP PRN SL 11/16/24 20:15 Morphine Sulfate 2 mg Q30M PRN IV 11/16/24 20:15 Ertapenem 1 gm/ Sodium Chloride 50 ml @ 100 mls/hr DAILY IV 11/19/24 10:00 11/24/24 12:02 100 MLS/HR Clopidogrel Bisulfate 75 mg DAILY PO 11/20/24 10:00 11/24/24 12:03 75 MG Laboratory Results Laboratory Tests 11/17/24 07:20 Urinalysis Test 11/16/24 16:02 Urine Color Yellow (Yellow) Urine Clarity Clear (Clear) Urine pH 5.5 (5.0-9.0) Urine Specific [place] 1.045 (1.001-1.035) Urine Protein Trace (Negative) H Urine Ketones Negative (Negative) Urine Blood Negative /uL (Negative) Urine Nitrite 2+ (Negative) H Urine Bilirubin Negative (Negative) Urine Urobilinogen Normal mg/dL (Negative) Urine Leukocyte Esterase 2+ /uL (Negative) Urine RBC 1 /hpf (0 - 3) Urine Microscopic WBC 96 /HPF (0-3) H Urine Squamous Epithelial Cells Few /hpf (<5) Urine Bacteria None seen /hpf (None Seen) Urine Mucus Few (None Seen) Urine Glucose Normal mg/dL (Normal) Microbiology Microbiology Date/Time Source Procedure Growth Status 11/17/24 14:33 Blood Blood Culture - Final NO GROWTH AFTER 5 DAYS OF INCUBATION. Complete 11/16/24 16:02 Voided Urine Urine Culture - Final Escherichia coli - ESBL Proteus mirabilis Complete Labs and/or images reviewed: Labs reviewed by me, Image(s) reviewed by me Assessment/Plan Assessment/Plan Sepsis secondary to complicated urinary tract infection: Blood cultures negative, urine culture growing ESBL E coli Acute urinary tract infection urine cultures growing ESBL E coli and Proteus mirabilis: Start Invanz 1 g IV daily for three weeks Acute metabolic encephalopathy Acute dehydration: IV fluids History of prostate cancer status post radiation therapy and surgery 2013 CHF ejection fraction 50% History of [place] status post stents COPD Hypertension Hypercholesterolemia History of fall two weeks ago Recurrent falls Old fracture T11 Diverticulosis History of spine surgery Parkinson's disease Dementia Patient was discharged to alf facility on 11/21/2024 Awaiting ISO bed in [facility] Examined today: No new complaints Plan discussed with: Patient Date of Service: Nov 25, 2024 Billing Provider: MIGNON ZELAYA MD Common Visit Codes: [id number] INP/OBS CARE(HIGH) MIGNON ZELAYA MD Nov 25, 2024 10:41
[2024-11-25] MEDS ORDERED: MELATONIN 5 MG TAB PO SCH (22:00)
[2024-11-26] MEDS: ACETAMINOPHEN 325 MG TAB PO PRN
[2024-11-26 00:47] VITALS: BP 108/63; PULSE 79; RESP 20; TEMP 99.1; O2SAT 95
[2024-11-26 05:00] VITALS: BP 123/70; PULSE 75; RESP 20; TEMP 97.8; O2SAT 96
[2024-11-26 08:00] VITALS: RESP 18
[2024-11-26 08:30] VITALS: BP 109/57; PULSE 69; RESP 18; TEMP 97.2; O2SAT 95
[2024-11-26] MEDS ORDERED: NITR50CA52 PO (11:35)
[2024-11-26] MEDS ORDERED: OLAN20TA PO (11:35)
[2024-11-26 12:31] VITALS: BP 129/53; PULSE 50; RESP 16; TEMP 97.4; O2SAT 98
[2024-11-26 16:45] VITALS: BP 121/61; PULSE 58; RESP 16; TEMP 97.4; O2SAT 99
== END 2024-11-26 21:00 | disposition hospice, inpatient (51) | DRG 871 ==
LOC: EDBD 14:48 → ER 14:48 → OVERFLOW 20:09 → EAST 22:15
PROVIDERS: ADMIT Family Medicine; ATTEND Family Medicine
PROC: 05HB33Z Insertion of Infusion Device into Right Basilic Vein, Percutaneous Approach (ICD-10-PCS; principal; 2024-11-18)
PROC: B548ZZA Ultrasonography of Superior Vena Cava, Guidance (ICD-10-PCS; 2024-11-18)
DX: A41.9 Sepsis, unspecified organism (principal); G93.41 Metabolic encephalopathy; N30.00 Acute cystitis without hematuria; Z16.12 Extended spectrum beta lactamase (ESBL) resistance; Z20.822 Contact with and (suspected) exposure to COVID-19; E86.0 Dehydration; I50.9 Heart failure, unspecified; J44.9 Chronic obstructive pulmonary disease, unspecified; E78.00 Pure hypercholesterolemia, unspecified; I11.0 Hypertensive heart disease with heart failure; G20.A1 Parkinson's disease without dyskinesia, without mention of fluctuations; K57.30 Diverticulosis of large intestine without perforation or abscess without bleeding; F02.80 Dementia in other diseases classified elsewhere, unspecified severity, without behavioral disturbance, psychotic disturbance, mood disturbance, and anxiety; R29.6 Repeated falls; B96.20 Unspecified Escherichia coli [E. coli] as the cause of diseases classified elsewhere; Z86.73 Personal history of transient ischemic attack (TIA), and cerebral infarction without residual deficits; Z95.1 Presence of aortocoronary bypass graft; Z85.46 Personal history of malignant neoplasm of prostate; Z92.3 Personal history of irradiation; I25.2 Old myocardial infarction; Z95.5 Presence of coronary angioplasty implant and graft; Z91.81 History of falling
CPT/HCPCS: 36415; 71250; 74176; 74177; 80053; 81001; 82962; 85025; 85610; 85730; 87040; 87086; 87088; 87186; 87426; 97110; 97116; 97163; 97530; A4565; G0378; J1335; J1815

== ENCOUNTER 2025-06-24 09:01 | Outpatient (CLI) | payer MEDICAID ==
[~2025-06-24 09:01] MED LIST changes: +NITR50CA52 PO; +OLAN20TA PO
[2025-06-24 09:59] LABS: Urine Protein, UAD Negative (Negative)
[2025-06-24 10:01] LABS: Hematocrit 40.4 % (41.0-53.0); Hemoglobin 13.6 g/dL (13.5-17.5); Mean Corpuscular Hemoglobin 32.6 pg (28.0-32.0); Mean Corpuscular Volume 96.9 fL (80.0-100.0); Nucleated Red Blood Cells % 0.1 %
[2025-06-24 10:07] LABS: INR 0.99 (0.9-1.15); Prothrombin Time 10.5 sec (9.3-11.8)
[2025-06-24 10:21] LABS: Albumin 4.1 g/dL (3.2-4.8); Alkaline Phosphatase 77 U/L (46-116); Anion Gap 8 (5-15); BUN/Creatinine Ratio 9.6 (10.0-20.0); Blood Urea Nitrogen 10 mg/dL (9-23); Calcium 9.2 mg/dL (8.7-10.4); Carbon Dioxide 27 mmol/L (20-31); Chloride 104 mmol/L (98-107); Cholesterol 139 mg/dL (< 200); Glucose 96 mg/dL (74-106); HDL Cholesterol 41 mg/dL (40-59); Potassium 4.0 mmol/L (3.5-5.1); Sodium 139 mmol/L (136-145); Total Protein 7.5 g/dL (5.7-8.2)
[2025-06-24 10:27] LABS: Alanine Aminotransferase < 9 U/L (7-40); Bilirubin, Total 1.4 mg/dL (0.2-1.0); Triglycerides 175 mg/dL (< 150)
[2025-06-24 10:54] LABS: Microalb/Creat Ratio, Urine 115.0
== END 2025-06-24 17:00 | disposition home or self-care (01) ==
LOC: LAB 09:01
PROVIDERS: ATTEND Internal Medicine
DX: Z01.812 Encounter for preprocedural laboratory examination (principal); E11.42 Type 2 diabetes mellitus with diabetic polyneuropathy; I25.10 Atherosclerotic heart disease of native coronary artery without angina pectoris
CPT/HCPCS: 36415; 80053; 80061; 81001; 82043; 82570; 84439; 84443; 85025; 85610; 85652

== ENCOUNTER 2025-10-05 21:33 | Inpatient (IN) | payer MEDICAID ==
[~2025-10-05] VITALS: Ht 167.6 cm; Wt 66.8 kg
--- NOTE | 2025-10-05 21:55 | ED.PDOC ---
HPI Comments 80-year-old male presents to the ED for chief complaint of chest pain accompanied by bradycardia. EMS reports the patient's pain started a couple of hours ago today, family gave aspirin and 3 nitroglycerin tablets prior to EMS arrival on scene however pain did not subside. Upon ED arrival, patient is at his normal baseline per EMS states he has bouts of confusion. The patient states that pain is at the center of his chest. No other symptoms noted. EMS did note a bradycardia in the 40s at the 12 lead EKG. Patient is on Plavix and aspirin. Patient is DNR status Past medical history: OR, Parkinson's, dementia, hypertension, CHF Past surgical history: CABG, multiple cardiac stents, open warts Social history: Unknown Allergies: None sheth: Chest pain, bradycardia HPI: Poor Historian. REVIEW OF SYSTEMS: CONSTITUTIONAL: Denies acute: fever, diaphoresis, chills, HEAD: Denies acute: headache, photophobia Eyes: Denies acute: Double vision, vision loss, eye pain, eye discharge. EARS: Denies acute: tinnitus, hearing loss, ear discharge, ear pain, THROAT: Denies acute: sore throat, swelling, difficulty swallowing , pain with swallowing, change in voice. NECK: Denies acute: neck pain, neck swelling, stiff neck. HEART: Denies acute : palpitations, LUNGS: Denies acute: SOB, wheezing, cough, hemoptysis ABDOMEN: Denies acute: abdominal pain, Nausea, Vomiting, diarrhea, melena , hematemesis, hematochezia SKIN: Denies acute: rash, redness, lesions, itchiness. EXTREMITIES: Denies acute: calf pain, numbness, tingling, weakness, denies pain in extremity. Denies acute: Low back pain. Neuro: Denies acute: focal neurological deficit, motor or sensory focal neurological deficit, tremors, seizure like activity, confusion, dizziness, change in mental status, loss of bowel or bladder function, cauda equina like symptoms. : Denies acute: dysuria, hematuria, flank pain, increase in urinary frequency. PSYCH: Denies acute: hallucination, suicidal ideation, homicidal ideation. PHYSICAL EXAM: General: -----mod---acute distress, awake and alert. Head: normocephalic, atraumatic. No raccoon's eyes, no gifford sign. Neck: supple, trachea is midline, no swelling. Throat: Normal phonation. Eyes:, no erythema, no purulent discharge, no proptosis, no icterus. Heart: regular rate, regular rhythm, no significant murmur appreciated. Lungs: no apparent respiratory distress, Able to speak in full sentences. No wheezing, no rhonchi, no crackles. No stridors Clear to auscultation bilaterally. Abdomen: non tender to palpation, non distended, soft, no guarding, no rebound, + bowel sounds. Neuro: Awake, Alert, oriented to name, self, situation, follows commands GCS=15. Speech is normal. Skin: no petechia, no purpura, no cyanosis, non-pale, not jaundice. Lower extremities: --no - Pitting edema no deformity, no focal swelling, no calf TTP. Makes eye contact. moves all four extremities. Face: no apparent facial droop. ED COURSE: DISCLAIMER: This medical document was created using an electronic medical record system with voice recognition software and computerized dictation system. Although this document has been carefully reviewed, there might still be some phonetic and typographical errors. Occasional wrong-word or "sound-alike" substitutions may have occurred due to the inherent limitations of voice recognition software. These areas are purely typographical due to imperfections of the software programs and do not reflect any compromise in the patient's medical care. Please read the chart carefully and recognize, using context, where these substitutions have occurred. 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, Allergies Allergies: Coded Allergies: NO KNOWN ALLERGIES (Unverified , 11/16/24) PT AND FAMILY CONFIRMED, PT DOES NOT HAVE ANY ALLERGIES Home Meds Active Scripts Olanzapine (Zyprexa) 20 Mg Tab, 1 TAB PO QPM, #30 TAB Prov:MIGNON ZELAYA MD 11/26/24 Nitrofurantoin (MACRODANTIN CAPSULE) 50 Mg Cp, 1 CAP PO BID, #30 CAP 11 Refills Prov:MIGNON ZELAYA MD 11/26/24 Reported Medications Lorazepam (ATIVAN TABLET) 0.5 Mg Tb, 1 TAB PO TID, #90 TAB 11/16/24 Tramadol Hcl (Tramadol Hcl) 50 Mg Tab, 50 MG PO Q6HP PRN for PAIN SCALE 1 THRU 6, MG 11/16/24 Clopidogrel Bisulfate (Plavix) 75 Mg Tab, 1 TAB PO DAILY, #90 TAB 1 Refill 11/16/24 Furosemide (Furosemide) 20 Mg Tab, 20 MG PO DAILY for 30 Days, MG 11/16/24 Rosuvastatin Calcium (Crestor) 10 Mg Tab, 1 TAB PO DAILY, #30 TAB 5 Refills 11/16/24 Glipizide (Glipizide) 5 Mg Tab, 5 MG PO for 30 Days, MG 11/16/24 Mirtazapine (Mirtazapine Oral Disintegrating Tablet) 15 Mg Tab, 1 TAB PO QPM, #30 TAB 3 Refills 11/16/24 Carvedilol (COREG) 3.125 Mg Tab, 6.25 MG OR, TAB 11/16/24 Bicalutamide (Bicalutamide) 50 Mg Tab, 50 MG PO, TAB 11/16/24 Carbidopa-Levodopa (Carbidopa/Levodopa Er) 25 /100 Tab, 1 100 PO, TAB 11/16/24 Tamsulosin HCl (Tamsulosin Hydrochloride) 0.4 Mg Cap, 0.4 MG PO, CAP 11/16/24 Metformin HCl (Metformin Hydrochloride) 1,000 Mg Tab, 1000 MG PO, TAB 11/16/24 Information Source: Patient, Emergency Med Personnel Mode of Arrival: EMS Severity: Moderate Timing: Hours EKG EKG : Pulse Rate (adult): 45 Cardiac Rhythm: SB Was a procedure done? Was a procedure done?: No CP Differential Dx Differential Diagnosis: N/A Differential Diagnosis: Angina, Chest Wall Pain, Cholelithiasis, Costochondritis, Pericarditis X-Ray, Labs, Meds, VS Vital Signs Date Time Temp Pulse Resp B/P (MAP) Pulse Ox O2 Delivery O2 Flow Rate FiO2 10/05/25 22:09 42 10 172/80 97 10/05/25 22:00 55 17 95 Nasal Cannula* 3 32 10/05/25 22:00 98.0 55 17 170/70 (103) 95 98.0 10/05/25 21:55 45 10/05/25 21:38 45 Lab Test 10/05/25 21:38 Range/Units White Blood Count 11.4 H 4.4-10.8 10^3/uL Red Blood Count 4.13 L 4.5-5.90 10^6/uL Hemoglobin 13.3 L 13.5-17.5 g/dL Hematocrit 39.3 L 41.0-53.0 % Mean Corpuscular Volume 95.0 80.0-100.0 fL Mean Corpuscular Hemoglobin 32.3 H 28.0-32.0 pg Mean Corpuscular Hemoglobin Concent 34.0 32.0-36.0 g/dL Red Cell Distribution Width 14.7 H 11.8-14.3 % Platelet Count 309 140-450 10^3/uL Mean Platelet Volume 7.6 6.9-10.8 fL Neutrophils (%) (Auto) 61.4 37.0-80.0 % Lymphocytes (%) (Auto) 25.9 10.0-50.0 % Monocytes (%) (Auto) 11.8 0.0-12.0 % Eosinophils (%) (Auto) 0.7 0.0-7.0 % Basophils (%) (Auto) 0.2 0.0-2.0 % Neutrophils # (Auto) 7.0 1.6-8.6 10 ^3/uL Lymphocytes # (Auto) 2.9 0.4-5.4 10 ^3/uL Monocytes # (Auto) 1.3 0-1.3 10 ^3/uL Eosinophils # (Auto) 0.1 0-0.8 10 ^3/uL Basophils # (Auto) 0 0-0.2 10 ^3/uL Nucleated Red Blood Cells 0.1 % Sodium Level 141 136-145 mmol/L Potassium Level 4.4 3.5-5.1 mmol/L Chloride Level 106 98-107 mmol/L Carbon Dioxide Level 27 20-31 mmol/L Anion Gap 8 5-15 Blood Urea Nitrogen 16 9-23 mg/dL Creatinine 1.27 0.700-1.30 mg/dL Glomerular Filtration Rate Calc 57 >90 mL/min BUN/Creatinine Ratio 12.6 10.0-20.0 Serum Glucose 138 H 74-106 mg/dL Lactic Acid Level Pending Calcium Level 9.7 8.7-10.4 mg/dL Total Bilirubin Pending Aspartate Amino Transferase (AST) 20 13-40 U/L Alanine Aminotransferase (ALT) 16 7-40 U/L Alkaline Phosphatase 94 46-116 U/L Troponin I High Sensitivity 11 </=54 ng/L B-Type Natriuretic Peptide Pending Total Protein 7.6 5.7-8.2 g/dL Albumin 4.2 3.2-4.8 g/dL Time of 1ST Reevaluation: 21:52 Reevaluation 1ST: Unchanged Patient Education/Counseling: Other (Patient has history of dementia) Family Education/Counseling: No Family Present Departure 1 Departure Time of Disposition: 22:25 Impression: Primary Impression: Chest pain Additional Impression: Sinus bradycardia Disposition: ADMITTED INPATIENT Admit to: Tele Condition: Guarded Discharged With: Self Critical Care Note Critical Care Time?: Yes Heart Score Heart Score: Heart Score Response (Comments) Value History Highly Suspicious 2 Age >65 2 Risk Factors >3 or Hx ASHD 2 Total 6 I personally scribed for JORDANA DELCID DO ([email or web address]) on 10/05/25 at 21:55. Electronically submitted by Joi Parra ([facility]). JORDANA DELCID DO Oct 05, 2025 21:55
--- NOTE | 2025-10-05 21:56 | ECG ---
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
[2025-10-05 21:59] LABS: Hematocrit 39.3 % (41.0-53.0); Hemoglobin 13.3 g/dL (13.5-17.5); Mean Corpuscular Hemoglobin 32.3 pg (28.0-32.0); Mean Corpuscular Volume 95.0 fL (80.0-100.0); Nucleated Red Blood Cells % 0.1 %
[2025-10-05 22:00] VITALS: PULSE 55; RESP 17; O2SAT 95
[2025-10-05 22:19] LABS: Alanine Aminotransferase 16 U/L (7-40); Albumin 4.2 g/dL (3.2-4.8); Alkaline Phosphatase 94 U/L (46-116); Anion Gap 8 (5-15); BUN/Creatinine Ratio 12.6 (10.0-20.0); Blood Urea Nitrogen 16 mg/dL (9-23); Calcium 9.7 mg/dL (8.7-10.4); Carbon Dioxide 27 mmol/L (20-31); Chloride 106 mmol/L (98-107); Potassium 4.4 mmol/L (3.5-5.1); Sodium 141 mmol/L (136-145); Total Protein 7.6 g/dL (5.7-8.2)
[2025-10-05 22:20] LABS: Bilirubin, Total 0.9 mg/dL (0.2-1.0); Glucose 138 mg/dL (74-106)
--- NOTE | 2025-10-05 22:33 | ECG ---
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
--- NOTE | 2025-10-05 23:10 | DVH ---
CHEST RADIOGRAPH INDICATION: cp coleman TECHNIQUE: Single frontal view of the chest was obtained COMPARISON: None FINDINGS: Previous sternotomy. Cardiac silhouette is borderline in size. Mild diffuse prominence of the pulmonary vasculature. Probable trace bilateral pleural effusions with mild bibasilar atelectasis. Bones and soft tissues demonstrate no significant abnormality. IMPRESSION: Cardiomegaly with pulmonary venous congestion.
--- NOTE | 2025-10-06 00:42 | ECG ---
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
[2025-10-06] MEDS ORDERED: NITROGLYCERIN 0.4 MG SL TAB SL PRN (04:30)
[2025-10-06] MEDS ORDERED: MORPHINE SULFATE 4 MG/ML SYR/VIAL IV PRN (04:45)
[2025-10-06 06:08] LABS: COVID19 ANTIGEN SOFIA FIA NEGATIVE (NEGATIVE)
[2025-10-06] MEDS: PANTOPRAZOLE 40 MG TAB PO SCH (06:25)
[2025-10-06] MEDS: CARBIDOPA W LEVODOPA 25/100mg TABLET PO SCH (06:25)
[2025-10-06] MEDS: FUROSEMIDE 40 MG/4 ML VIAL IV SCH (06:26)
[2025-10-06 07:30] VITALS: PULSE 54; RESP 16; O2SAT 95
--- NOTE | 2025-10-06 08:03 | DVHHPRES ---
History of Present Illness Resident Creating Document: TRUONG WILLS RESIDENT History of Present Illness Patient is a 80-year-old male who was brought in by EMS after chief complaint of chest pain. Patient has a history of Parkinson's disease and has difficulty speaking, history given by the who reported that in the evening he started to have chest pain left-sided to substernal, pressure-like, nonradiating at rest , at that time patient's blood pressure SBP was in 190s following which nitroglycerin was given 2-3 doses which improved with the chest pain. EMS were called who reported there are some changes in the ECG and brought the patient to the hospital for further evaluation. On arrival to the hospital patient's blood pressure was 170/70 mmHg, seen to be bradycardic in 40-50. Twelve lead ECG was done which showed sinus bradycardia with right bundle branch block, no acute ST or T-wave changes, old inferior infarct. Troponin within normal limits, chest x-ray showed bilateral congestion with a cardiomegaly Past medical history: 5 MIs, significant coronary artery disease, Parkinson's disease, prostate carcinoma Past surgical history: CABG, PCI with 3 SLY Social history: patient has been mostly bed-bound with the last 3 years, does not smoke no alcohol or drug use Home medications: Carbidopa levodopa, carvedilol, clopidogrel, Lasix, glipizide, metformin, mirtazapine, olanzapine, rosuvastatin, tamsulosin Review of Systems Review of Systems Patient is A&O x2 Denies any chest pain, shortness of breath at present while on 2-3 L oxygen on n alexi cannula, heart rate in the high 40s and low 50s Allergies: Coded Allergies: NO KNOWN ALLERGIES (Unverified , 11/16/24) PT AND FAMILY CONFIRMED, PT DOES NOT HAVE ANY ALLERGIES Medications Current Medications Medications Dose Ordered Sig/Elana Route Start Time Stop Time Status Last Admin Dose Admin Nitroglycerin 0.4 mg Q5MINP PRN SL 10/06/25 04:30 Morphine Sulfate 2 mg Q30M PRN IV 10/06/25 04:45 Pantoprazole Sodium 40 mg DAILY@0600 PO 10/06/25 06:00 10/06/25 06:25 40 MG Furosemide 40 mg BIDD IV 10/06/25 06:00 10/06/25 06:26 40 MG Clopidogrel Bisulfate 75 mg DAILY PO 12/21/25 10:00 Carbidopa/Levodopa 1 tab TID PO 10/06/25 06:00 10/06/25 06:25 1 TAB Olanzapine 20 mg QPM PO 10/06/25 18:00 Losartan Potassium 50 mg DAILY PO 10/06/25 10:00 Atorvastatin Calcium 40 mg HS PO 10/06/25 22:00 Tamsulosin HCl 0.4 mg QPM PO 10/06/25 18:00 Ranolazine 500 mg BID PO 10/06/25 10:00 Exam Vital Signs Vital Signs Date Time Temp Pulse Resp B/P (MAP) Pulse Ox O2 Delivery O2 Flow Rate FiO2 10/06/25 06:26 148/72 10/06/25 06:00 97.9 52 19 93 97.9 10/05/25 22:00 Nasal Cannula* 3 32 Exam Skin - Patients skin is warm and dry. HEENT - normocephalic, atraumatic, moist mucous membranes, no scleral icterus, no conjunctival pallor. Neck - full ROM, no LAD, mild elevation in the JVP Pulmonary - B/L basilar to mid rales, no wheezing cardiovascular - regular S1,S2 heard, no added sounds, no murmurs could be appreciated. peripheral pulses normal radial 2+, pedal 2+. One to 2+ bilateral lower extremity pitting edema GI - soft, nontender abdomen. no hepatospleenomegaly. Bowel sounds normoactive Neurological - Patient is A/O X 2 . Patient has decreased strength in the bilateral upper and lower extremities, bed-bound since the last 3 years, slow comprehensible speech, no dysphagia, no facial droop Labs/Xrays Labs Test 10/06/25 04:45 10/06/25 00:36 10/05/25 21:38 Range/Units Influenza Type A Antigen Negative Negative Influenza Type B Antigen Negative Negative SARS-CoV-2 Antigen (Rapid) Negative NEGATIVE Troponin I High Sensitivity 13 </=54 ng/L White Blood Count 11.4 H 4.4-10.8 10^3/uL Red Blood Count 4.13 L 4.5-5.90 10^6/uL Hemoglobin 13.3 L 13.5-17.5 g/dL Hematocrit 39.3 L 41.0-53.0 % Mean Corpuscular Volume 95.0 80.0-100.0 fL Mean Corpuscular Hemoglobin 32.3 H 28.0-32.0 pg Mean Corpuscular Hemoglobin Concent 34.0 32.0-36.0 g/dL Red Cell Distribution Width 14.7 H 11.8-14.3 % Platelet Count 309 140-450 10^3/uL Mean Platelet Volume 7.6 6.9-10.8 fL Neutrophils (%) (Auto) 61.4 37.0-80.0 % Lymphocytes (%) (Auto) 25.9 10.0-50.0 % Monocytes (%) (Auto) 11.8 0.0-12.0 % Eosinophils (%) (Auto) 0.7 0.0-7.0 % Basophils (%) (Auto) 0.2 0.0-2.0 % Neutrophils # (Auto) 7.0 1.6-8.6 10 ^3/uL Lymphocytes # (Auto) 2.9 0.4-5.4 10 ^3/uL Monocytes # (Auto) 1.3 0-1.3 10 ^3/uL Eosinophils # (Auto) 0.1 0-0.8 10 ^3/uL Basophils # (Auto) 0 0-0.2 10 ^3/uL Nucleated Red Blood Cells 0.1 % Sodium Level 141 136-145 mmol/L Potassium Level 4.4 3.5-5.1 mmol/L Chloride Level 106 98-107 mmol/L Carbon Dioxide Level 27 20-31 mmol/L Anion Gap 8 5-15 Blood Urea Nitrogen 16 9-23 mg/dL Creatinine 1.27 0.700-1.30 mg/dL Glomerular Filtration Rate Calc 57 >90 mL/min BUN/Creatinine Ratio 12.6 10.0-20.0 Serum Glucose 138 H 74-106 mg/dL Lactic Acid Level 1.5 0.4-2.0 mmol/L Calcium Level 9.7 8.7-10.4 mg/dL Total Bilirubin 0.9 0.2-1.0 mg/dL Aspartate Amino Transferase (AST) 20 13-40 U/L Alanine Aminotransferase (ALT) 16 7-40 U/L Alkaline Phosphatase 94 46-116 U/L B-Type Natriuretic Peptide 158.88 0-100 pg/mL Total Protein 7.6 5.7-8.2 g/dL Albumin 4.2 3.2-4.8 g/dL SEPSIS Sepsis Screen Date sepsis recognized/suspect: Oct 05, 2025 Time Sepsis recognized/suspect: 2039 Recent Procedure: No On Antibiotic Therapy: No Respiratory Rate >20: No Heart Rate >90: No Temp<36 C (96.8 F) or >38.3 C: No SBP <90 or MAP <65 mmHG: No New Acute Mental Status Change: No Is the patient on CPAP, BIPAP,: No Physician Orders Admit (10/06/25 04:18) Nitroglycerin Sublingual (Ntrostat Subli (10/06/25 04:30) Oxygen By Nasal Cannula (10/06/25 04:18) Stat Ekg For Chest Pain (10/06/25 04:18) Notify Md Of Changes From Base (10/06/25 04:18) Inside Parts Sales For 24 Hours (10/06/25 04:18) Emergency Dysrhythmia Protocol (10/06/25 04:18) Pantoprazole Tablet (Protonix Tablet) (10/06/25 06:00) Furosemide Injection (Lasix Injection) (10/06/25 06:00) Clopidogrel Bisulfate (Plavix) (10/06/25 10:00) Carbidopa W Levodopa 25/100mg (Sinemet 2 (10/06/25 06:00) Olanzapine Tablet (Zyprexa Tablet) (10/06/25 18:00) Losartan Tablet (Cozaar Tablet) (10/06/25 10:00) Atorvastatin (Lipitor) (10/06/25 22:00) Tamsulosin Hydrochloride (Flomax) (10/06/25 18:00) Ranolazine (Ranexa Er) (10/06/25 10:00) Morphine Sulfate Injection (10/06/25 04:45) Vital Signs Date Time Temp Pulse Resp B/P (MAP) Pulse Ox O2 Delivery O2 Flow Rate FiO2 10/06/25 06:26 148/72 10/06/25 06:00 97.9 52 19 144/67 (92) 93 97.9 10/06/25 04:00 52 10/06/25 04:00 97.9 47 20 143/57 (85) 94 97.9 10/06/25 02:00 97.9 50 20 129/54 (79) 95 97.9 10/06/25 00:40 51 10/06/25 00:00 98.0 51 20 169/71 (103) 95 98.0 Laboratory Tests Test 10/05/25 21:38 Lactic Acid Level 1.5 mmol/L (0.4-2.0) White Blood Count 11.4 10^3/uL (4.4-10.8) H Medications Medications Dose Ordered Sig/Elana Route Start Time Stop Time Status Last Admin Dose Admin Carbidopa/Levodopa 1 tab TID PO 10/06/25 06:00 10/06/25 06:25 1 TAB Furosemide 40 mg BIDD IV 10/06/25 06:00 10/06/25 06:26 40 MG Pantoprazole Sodium 40 mg DAILY@0600 PO 10/06/25 06:00 10/06/25 06:25 40 MG Assessment/Plan Assessment/Plan Acute coronary syndrome likely unstable angina Acute on chronic heart failure systolic versus diastolic Sinus bradycardia Acute hypoxic respiratory failure likely due to pulmonary edema h/o Parkinson's disease Plan - continue on Plavix, atorvastatin, ranolazine - echocardiogram pending - patient will benefit from Cardiology consult - on telemetry - diuresis with the IV Lasix, strict I&Os, maintain net negative fluid balance - held beta zach - continued on carbidopa levodopa t.i.d. - pureed diet Goals of care discussed with the patient and his at bedside. DNR Time spent: 37 minutes Plan discussed with Dr. Gutierrez Plan discussed with: Spouse My Orders Orders - TRUONG WILLS RESIDENT Procedure Category Date Status Time Admit ADMIT 10/06/25 Transmitted 04:18 Nitroglycerin PHA 10/06/25 In Process Sublingual (Ntrostat 04:30 Oxygen By Nasal RT 10/06/25 Transmitted Cannula 04:18 Stat Ekg For Chest ADAMARIS 10/06/25 In Process Pain 04:18 Notify Of Changes ADAMARIS 10/06/25 In Process From Base 04:18 Inside Parts Sales For ADAMARIS 10/06/25 In Process 24 Hours 04:18 Emergency Dysrhythmia ADAMARIS 10/06/25 In Process Protocol 04:18 Pantoprazole Tablet PHA 10/06/25 In Process (Protonix Tablet) 06:00 Furosemide Injection PHA 10/06/25 In Process (Lasix Injection) 06:00 Clopidogrel Bisulfate PHA 10/06/25 In Process (Plavix) 10:00 Carbidopa W Levodopa PHA 10/06/25 In Process 25/100mg (Sinemet 2 06:00 Olanzapine Tablet PHA 10/06/25 In Process (Zyprexa Tablet) 18:00 Losartan Tablet PHA 10/06/25 In Process (Cozaar Tablet) 10:00 Atorvastatin (Lipitor) PHA 10/06/25 In Process 22:00 Tamsulosin PHA 10/06/25 In Process Hydrochloride (Flomax) 18:00 Ranolazine (Ranexa Er) PHA 10/06/25 In Process 10:00 Morphine Sulfate PHA 10/06/25 In Process Injection 04:45 Visit Coding STANDARD RES Billing Provider: HALLIE GUTIERREZ MD Date of Service if different f: Oct 06, 2025 Common Visit Codes: 21024-[id number] INP/OBS CARE (HIGH) Secondary Visit Codes: 60920-[id number] CARE PLAN 30 MINUTES TRUONG WILLS RESIDENT Oct 06, 2025 08:03
[2025-10-06 09:12] LABS: Urine Protein, UAD Negative (Negative)
[2025-10-06] MEDS: LOSARTAN POTASSIUM 50 MG TAB PO SCH (10:00)
[2025-10-06] MEDS: CLOPIDOGREL BISULFATE 75 MG TAB PO SCH (10:14)
[2025-10-06] MEDS: RANOLAZINE ER 500 MG TAB PO SCH (10:14)
[2025-10-06 14:38] VITALS: BP 135/69; PULSE 61; RESP 19; TEMP 98.4; O2SAT 96
--- NOTE | 2025-10-06 14:49 | DVHSR ---
APPROVED REPORT EXAM: Two-dimensional and M-mode echocardiogram with Doppler and color Doppler. Blood Pressure: 144/63 mmHg INDICATION B/L pulmonary edema H/O CAD with CABG Surgery/Intervention CABG: RISK FACTORS Height: 5'6", Weight: 150 DIMENSIONS LVDd 5.1 (3.8-5.7cm) LA (2D) 3.4 (1.9-4.0cm) Aortic Root 3.5 (2.0-3.7cm) LVDs 4.3 (2.5-4.0cm) LA (MM) (1.9-4.0cm) Aortic Cusp Exc 1.1 (1.5-2.0cm) EF (%) 40.0 (55-70%) Rt. Atrium 3.4 (1.9-4.0cm) Asc. Aorta cm IVSd 1.0 (0.7-1.1cm) RV (D) (1.8-2.4cm) PWd 1.2 (0.7-1.1cm) Mitral Valve Mitral Mitral Stenosis E wave 0.50m/s MV Mean GR. mmHg A wave 0.91m/s MV Peak GR. mmHg E/A ratio 0.5 2D MVA cm2 DECEL Time 318ms PRESS 1/2 Time ms Aortic Valve Aortic Valve Aortic Stenosis V1 0.99m/s AO Mean GR. 3mmHg V2 1.23m/s AO Peak GR. 6mmHg LVOT Diameter 2.1 (1.8-2.4cm) Doppler ERICK 2.79cm2 Pulmonic Valve V2 0.94m/s Tricuspid Valve TR Velocity 2.65m/s RVSP 31mmHg Other Information Technically limited study due to body habitus and CABG, patient laying flat. Conclusion Left ventricle: Systolic function is mildly reduced. The estimated ejection fraction is 40-45%. There is grade I diastolic dysfunction. Right ventricle: Systolic function is normal. Estimated RVSP31 mm Hg Mitral valve: There is trace regurgitation. There is no stenosis. Aortic valve: The valve is tricuspid. There is no stenosis. There is no regurgitation. Tricuspid valve: There is mild regurgitation. Pulmonic valve: There is no regurgitation. Pericardium: There is no pericardial effusion. Inferior vena cannula; the vessel is normal in size. There is normal respiratory phasic variation.
[2025-10-06 15:54] VITALS: BP 135/69; PULSE 61; RESP 19; TEMP 98.4; O2SAT 96
[2025-10-06 16:33] VITALS: BP 130/73; PULSE 65; RESP 19; TEMP 98; O2SAT 96
--- NOTE | 2025-10-06 16:40 | DVHINCON2 ---
OLGA LIDIA CHAHAL [facility] 10/06/25 1640: Date Seen: Oct 06, 2025 Referring Physician MD Adelita Reason for Consultation Bradycardia History of Present Illness This is a Citizen Of [place]-speaking 80-year-old man who presented to the emergency room via EMS with a chief complaint of chest pain yesterday. Information obtained from patient, family at bedside, and records which indicate the patient complaint of left-sided chest pain, nonradiating, non provoked, and pressure- like ongoing for approximately 3 hours for which the patient took NTG SL x 2-3 doses with some relief of symptoms. At time of assessment, the patient denied any further chest pain. In addition he was also found to be bradycardic for which he underwent multiple 12 lead electrocardiograms x3 revealing a sinus bradycardia rhythm with an associated right bundle branch block, premature atrial contractions, and no evidence of acute ST-T wave segment changes c oncerning for ischemia. He takes Coreg 3.125 mg p.o. b.i.d.. Serial troponin levels x3 are negative. BNP level is 158 pg/mL. Significant medical history includes severe coronary artery disease undergoing a triple-vessel CABG in 1998 followed by PCI of vein graft to right posterior descending artery including 1DES & distal anastomosis vein graft to LCx obtuse marginal lesion x 1 SLY (2017) followed by attempted angioplasty of FURNACE MAINTENANCE of the RCA (2020) (on Plavix and statin), hypertension, dyslipidemia, [id number] diabetes mellitus, Parkinson's disease, history of prostate cancer normal status post radical prostatectomy, and recent hospice care status. Past Medical History Past medical history reviewed. No other significant than mentioned above. Past Surgical History PTCA with stent placement x 2DES, 2017 Triple vessel CABG, 1998 Bilateral cataracts, 2024 Radical prostatectomy, 2013 Bladder neck reconstruction/septoplasty, 2013 Bilateral direct hernia repair using mesh, 2013 Bilateral pelvic lymph node dissection, 2013 Family History: Patient reports no known family medical history. Family History Family history reviewed. Social History Denies the use of illicit drugs, alcohol, or tobacco use. Allergies: Coded Allergies: NO KNOWN ALLERGIES (Unverified , 11/16/24) PT AND FAMILY CONFIRMED, PT DOES NOT HAVE ANY ALLERGIES Home Meds Active Scripts Olanzapine (Zyprexa) 20 Mg Tab, 1 TAB PO QPM, #30 TAB Prov:MIGNON ZELAYA MD 11/26/24 Nitrofurantoin (MACRODANTIN CAPSULE) 50 Mg Cp, 1 CAP PO BID, #30 CAP 11 Refills Prov:MIGNON ZELAYA MD 11/26/24 Reported Medications Lorazepam (ATIVAN TABLET) 0.5 Mg Tb, 1 TAB PO TID, #90 TAB 11/16/24 Tramadol Hcl (Tramadol Hcl) 50 Mg Tab, 50 MG PO Q6HP PRN for PAIN SCALE 1 THRU 6, MG 11/16/24 Clopidogrel Bisulfate (Plavix) 75 Mg Tab, 1 TAB PO DAILY, #90 TAB 1 Refill 11/16/24 Furosemide (Furosemide) 20 Mg Tab, 20 MG PO DAILY for 30 Days, MG 11/16/24 Rosuvastatin Calcium (Crestor) 10 Mg Tab, 1 TAB PO DAILY, #30 TAB 5 Refills 11/16/24 Glipizide (Glipizide) 5 Mg Tab, 5 MG PO for 30 Days, MG 11/16/24 Mirtazapine (Mirtazapine Oral Disintegrating Tablet) 15 Mg Tab, 1 TAB PO QPM, #30 TAB 3 Refills 11/16/24 Carvedilol (COREG) 3.125 Mg Tab, 6.25 MG OR, TAB 11/16/24 Bicalutamide (Bicalutamide) 50 Mg Tab, 50 MG PO, TAB 11/16/24 Carbidopa-Levodopa (Carbidopa/Levodopa Er) 25 /100 Tab, 1 100 PO, TAB 11/16/24 Tamsulosin HCl (Tamsulosin Hydrochloride) 0.4 Mg Cap, 0.4 MG PO, CAP 11/16/24 Metformin HCl (Metformin Hydrochloride) 1,000 Mg Tab, 1000 MG PO, TAB 11/16/24 Home Meds Home medications reviewed. Current Medications Current Medications Medications (Trade) Dose Ordered Sig/Elana Route PRN Reason Start Time Stop Time Status Last Admin Nitroglycerin (Ntrostat Sublingual) 0.4 mg Q5MINP PRN SL FOR CHEST PAIN 10/06/25 04:30 Morphine Sulfate 2 mg Q30M PRN IV FOR CHEST PAIN 10/06/25 04:45 Pantoprazole Sodium (Protonix Tablet) 40 mg DAILY@0600 PO 10/06/25 06:00 10/06/25 06:25 Furosemide (Lasix Injection) 40 mg BIDD IV 10/06/25 06:00 10/06/25 06:26 Clopidogrel Bisulfate (Plavix) 75 mg DAILY PO 10/06/25 10:00 10/06/25 10:14 Carbidopa/Levodopa (Sinemet 25/ 100MG) 1 tab TID PO 10/06/25 06:00 10/06/25 14:09 Olanzapine (ZyPREXA Tablet) 20 mg QPM PO 10/06/25 18:00 Losartan Potassium (Cozaar Tablet) 50 mg DAILY PO 10/06/25 10:00 10/06/25 13:51 Atorvastatin Calcium (Lipitor) 40 mg HS PO 10/06/25 22:00 Tamsulosin HCl (Flomax) 0.4 mg QPM PO 10/06/25 18:00 Ranolazine (Ranexa ER) 500 mg BID PO 10/06/25 10:00 10/06/25 10:14 Review of Systems Constitutional: No symptom reported Ears, Nose, & Throat: No symptom reported Eyes: No symptom reported Neurological: No symptoms reported Pulmonary/Respiratory: No symptom reported Cardiovascular: Chest pain Gastrointestinal: No symptom reported Genitourinary: No symptom reported Musculoskeletal: No symptom reported Skin: No symptom reported Psychiatric: No symptom reported Endocrine: No symptom reported Hemotologic/Lymphatic: No symptom reported Vital Signs Vital Signs Date Time Temp Pulse Resp B/P (MAP) Pulse Ox O2 Delivery O2 Flow Rate FiO2 10/06/25 14:38 98.4 61 19 135/69 (91) 96 98.4 10/06/25 07:30 Nasal Cannula* 2 28 Physical Exam General Appearance: Chronically ill. Tremors present. Contracted. In no acute distress Head Exam: Normal inspection Neck Exam: Normal inspection. Non-tender. Normal alignment Pulmonary/Respiratory: Chest non-tender. Diminished bilateral breath sounds Cardiovascular/Chest: Regular rate and rhythm. S1, S2. Sinus bradycardia with RBBB. No murmurs. No JVD. Peripheral Pulses: 2+ Radial (R). 2+ Radial (L). 2+ Pedal (R). 2+ Pedal (L) Abdominal Exam: Normal bowel sounds Ankle Exam: Negative ankle edema Lower extremities: Negative lower extremity edema Neuro/Mental Status: A&O x3. Coherent but limited verbalization. Tremors present Thoughts/Psych: Normal thought pattern. Appropriate mood and affect. Passive Appearance: In no acute distress Skin Exam: Normal inspection. Normal color. Warm. Dry Labs/Diagnostic Data Labs Test 10/06/25 09:03 10/06/25 04:45 10/06/25 00:36 10/05/25 21:38 Range/Units Urine Color Colorless Yellow Urine Clarity Clear Clear Urine pH 6.5 5.0-9.0 Urine Specific [place]bell 1.005 1.001-1.035 Urine Protein Negative Negative Urine Ketones Negative Negative Urine Blood Negative Negative /uL Urine Nitrite Negative Negative Urine Bilirubin Negative Negative Urine Urobilinogen Normal Negative mg/dL Urine Leukocyte Esterase Negative Negative /uL Urine RBC <1 0 - 3 /hpf Urine Microscopic WBC < 1 0-3 /HPF Urine Squamous Epithelial Cells Few <5 /hpf Urine Bacteria None seen None Seen /hpf Urine Glucose Normal Normal mg/dL Influenza Type A Antigen Negative Negative Influenza Type B Antigen Negative Negative SARS-CoV-2 Antigen (Rapid) Negative NEGATIVE Troponin I High Sensitivity 13 </=54 ng/L White Blood Count 11.4 H 4.4-10.8 10^3/uL Red Blood Count 4.13 L 4.5-5.90 10^6/uL Hemoglobin 13.3 L 13.5-17.5 g/dL Hematocrit 39.3 L 41.0-53.0 % Mean Corpuscular Volume 95.0 80.0-100.0 fL Mean Corpuscular Hemoglobin 32.3 H 28.0-32.0 pg Mean Corpuscular Hemoglobin Concent 34.0 32.0-36.0 g/dL Red Cell Distribution Width 14.7 H 11.8-14.3 % Platelet Count 309 140-450 10^3/uL Mean Platelet Volume 7.6 6.9-10.8 fL Neutrophils (%) (Auto) 61.4 37.0-80.0 % Lymphocytes (%) (Auto) 25.9 10.0-50.0 % Monocytes (%) (Auto) 11.8 0.0-12.0 % Eosinophils (%) (Auto) 0.7 0.0-7.0 % Basophils (%) (Auto) 0.2 0.0-2.0 % Neutrophils # (Auto) 7.0 1.6-8.6 10 ^3/uL Lymphocytes # (Auto) 2.9 0.4-5.4 10 ^3/uL Monocytes # (Auto) 1.3 0-1.3 10 ^3/uL Eosinophils # (Auto) 0.1 0-0.8 10 ^3/uL Basophils # (Auto) 0 0-0.2 10 ^3/uL Nucleated Red Blood Cells 0.1 % Sodium Level 141 136-145 mmol/L Potassium Level 4.4 3.5-5.1 mmol/L Chloride Level 106 98-107 mmol/L Carbon Dioxide Level 27 20-31 mmol/L Anion Gap 8 5-15 Blood Urea Nitrogen 16 9-23 mg/dL Creatinine 1.27 0.700-1.30 mg/dL Glomerular Filtration Rate Calc 57 >90 mL/min BUN/Creatinine Ratio 12.6 10.0-20.0 Serum Glucose 138 H 74-106 mg/dL Lactic Acid Level 1.5 0.4-2.0 mmol/L Calcium Level 9.7 8.7-10.4 mg/dL Total Bilirubin 0.9 0.2-1.0 mg/dL Aspartate Amino Transferase (AST) 20 13-40 U/L Alanine Aminotransferase (ALT) 16 7-40 U/L Alkaline Phosphatase 94 46-116 U/L B-Type Natriuretic Peptide 158.88 0-100 pg/mL Total Protein 7.6 5.7-8.2 g/dL Albumin 4.2 3.2-4.8 g/dL Assessment 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 Medeiros) The patient presents with likely beta-zach induced bradycardia as he is on carvedilol 3.125 p.o. b.i.d. at home. Initiate glucagon IV and await for washout within the next 48 hours. He is asymptomatic and mostly w/c bound. Given chronic illnesses and recent hospice care status, we recommend conservative management at this time. This was discussed with family at bedside who agreed with plan of care. In the meantime, avoid AV idris blocking agents. Continue single-antiplatelet therapy and lipid lowering agent. A transthoracic echocardiogram revealing LVEF of 40-45% with grade 1 diastolic dysfunction. Initiate SGLTi & MRA, and continue ARB. Continue preload and afterload reduction as tolerated. Continue following up in the outpatient setting with Dr. Chisholm as necessary. Consider goals of care. There is no further cardiac work-up indicated at this time. Kindly call if in need of further r ecommendations. Thank you for allowing us to participate in this patient's care. This medical document was created using an electronic medical record system with voice recognition software and computerized dictation system. Although this d ocument has been carefully reviewed, there might still be some phonetic and typographical errors. Occasional wrong-word or ``sound-alike substitutions may have occurred due to the inherent limitations of voice recognition software. These areas are purely typographical due to imperfections of the software programs and do not reflect any compromise in the patient's medical care. Please read the chart carefully and recognize, using context, where these substitutions have occurred. Plan discussed with: Patient, Spouse, Son, Other NYHA Physical activity limitations: Class2(Slight)fatigue,sob Date of Service: Oct 06, 2025 Billing Provider: OLGA LIDIA CHAHAL [facility] Cardiology Common Codes: 98266-XYRWERN INP/OBS CARE (High) ASHIA MEDEIROS MD 10/06/25 1747: Date Seen: Oct 06, 2025 Referring Physician Patient was seen and examined at bedside. Plan was formulated with Ms. Marcia Chahal cardiology FOCUS PULLER as above. Patient denies having chest pain or chest discomfort at this time. He has multiple chronic illnesses including early stage dementia per both sounds report. He has history of CABG and PCI in the past. He is wheelchair-bound and is physical activity is almost none. Son reports his breathing and responses are at baseline with no significant changes. This is not ACS. EKG does not show dynamic ischemic changes. We will continue with conservative management. We will discontinue carvedilol that could be causing patient's bradycardia. Can start metoprolol for congestive heart failure as outpatient. Ashia Medeiros MD Interventional Cardiology Family History: Patient reports no known family medical history. Allergies: Coded Allergies: NO KNOWN ALLERGIES (Unverified , 11/16/24) PT AND FAMILY CONFIRMED, PT DOES NOT HAVE ANY ALLERGIES Home Meds Active Scripts Olanzapine (Zyprexa) 20 Mg Tab, 1 TAB PO QPM, #30 TAB Prov:MIGNON ZELAYA MD 11/26/24 Nitrofurantoin (MACRODANTIN CAPSULE) 50 Mg Cp, 1 CAP PO BID, #30 CAP 11 Refills Prov:MIGNON ZELAYA MD 11/26/24 Reported Medications Lorazepam (ATIVAN TABLET) 0.5 Mg Tb, 1 TAB PO TID, #90 TAB 11/16/24 Tramadol Hcl (Tramadol Hcl) 50 Mg Tab, 50 MG PO Q6HP PRN for PAIN SCALE 1 THRU 6, MG 11/16/24 Clopidogrel Bisulfate (Plavix) 75 Mg Tab, 1 TAB PO DAILY, #90 TAB 1 Refill 11/16/24 Furosemide (Furosemide) 20 Mg Tab, 20 MG PO DAILY for 30 Days, MG 11/16/24 Rosuvastatin Calcium (Crestor) 10 Mg Tab, 1 TAB PO DAILY, #30 TAB 5 Refills 11/16/24 Glipizide (Glipizide) 5 Mg Tab, 5 MG PO for 30 Days, MG 11/16/24 Mirtazapine (Mirtazapine Oral Disintegrating Tablet) 15 Mg Tab, 1 TAB PO QPM, #30 TAB 3 Refills 11/16/24 Carvedilol (COREG) 3.125 Mg Tab, 6.25 MG OR, TAB 11/16/24 Bicalutamide (Bicalutamide) 50 Mg Tab, 50 MG PO, TAB 11/16/24 Carbidopa-Levodopa (Carbidopa/Levodopa Er) 25 /100 Tab, 1 100 PO, TAB 11/16/24 Tamsulosin HCl (Tamsulosin Hydrochloride) 0.4 Mg Cap, 0.4 MG PO, CAP 11/16/24 Metformin HCl (Metformin Hydrochloride) 1,000 Mg Tab, 1000 MG PO, TAB 11/16/24 OLGA LIDIA CHAHAL Oct 06, 2025 16:40 ASHIA MEDEIROS MD Oct 06, 2025 17:47
[2025-10-06] MEDS: TAMSULOSIN HYDROCHLORIDE 0.4 MG CAP PO SCH (17:59)
[2025-10-06] MEDS: OLANZapine 5 MG TAB PO SCH (18:00)
[2025-10-06 20:00] VITALS: PULSE 72; RESP 18; O2SAT 97
[2025-10-06 21:00] VITALS: BP 91/65; PULSE 75; RESP 19; TEMP 96.7; O2SAT 97
[2025-10-06] MEDS: ATORVASTATIN 20 MG TAB PO SCH (22:11)
[2025-10-07] VITALS (8 sets, daily range): BP systolic 100–115; BP diastolic 61–78; PULSE 81–107; RESP 18–20; TEMP 97.6–98.4; O2SAT 91–97
[2025-10-07] MEDS: SPIRONOLACTONE 25 MG TAB PO SCH (10:00)
[2025-10-07] MEDS: EMPAGLIFLOZIN 10 MG TAB PO SCH (10:00)
--- NOTE | 2025-10-07 17:09 | DVHPN2 ---
Subjective OVERNIGHT EVENTS NOTED. PATIENT'S HAS BEEN BEING SEEN BY CARDIOLOGY. PENDING SWALLOW EVALUATION. Changes from previous H/P or p: No Changes Objective Vitals Vital Signs Date Time Temp Pulse Resp B/P (MAP) Pulse Ox O2 Delivery O2 Flow Rate FiO2 10/07/25 16:57 97.7 97 18 108/78 (88) 97 97.7 10/07/25 08:05 Nasal Cannula* 2 28 Intake/Output Intake and Output 10/07/25 07:00 Intake Total 200 ml Balance 200 ml Intake Oral 200 ml # Voids 7 Exam HEENT PUPILS ARE REACTIVE NECK IS SUPPLE CV IS S1-S2 REGULAR RATE AND RHYTHM DIMINISHED BREATH SOUNDS BASES GI POSITIVE BOWEL SOUND EXTREMITY TRACE EDEMA RISK ADJUSTMENT SPECIALIST MINIMALLY FOLLOWING COMMANDS Medications Current Medications Medications Dose Ordered Sig/Elana Route Start Time Stop Time Status Last Admin Dose Admin Nitroglycerin 0.4 mg Q5MINP PRN SL 10/06/25 04:30 Morphine Sulfate 2 mg Q30M PRN IV 10/06/25 04:45 Pantoprazole Sodium 40 mg DAILY@0600 PO 10/06/25 06:00 10/07/25 05:29 40 MG Furosemide 40 mg BIDD IV 10/06/25 06:00 10/07/25 05:29 40 MG Clopidogrel Bisulfate 75 mg DAILY PO 10/06/25 10:00 10/06/25 10:14 75 MG Carbidopa/Levodopa 1 tab TID PO 10/06/25 06:00 10/07/25 05:30 1 TAB Olanzapine 20 mg QPM PO 10/06/25 18:00 10/06/25 18:00 20 MG Losartan Potassium 50 mg DAILY PO 10/06/25 10:00 10/06/25 13:51 50 MG Atorvastatin Calcium 40 mg HS PO 10/06/25 22:00 10/06/25 22:11 40 MG Tamsulosin HCl 0.4 mg QPM PO 10/06/25 18:00 10/06/25 17:59 0.4 MG Ranolazine 500 mg BID PO 10/06/25 10:00 10/06/25 22:11 500 MG Empaglifozin 10 mg DAILY PO 10/07/25 10:00 Spironolactone 25 mg DAILY PO 10/07/25 10:00 Laboratory Results Laboratory Tests 10/05/25 21:38 Urinalysis Test 10/06/25 09:03 Urine Color Colorless (Yellow) Urine Clarity Clear (Clear) Urine pH 6.5 (5.0-9.0) Urine Specific [place] 1.005 (1.001-1.035) Urine Protein Negative (Negative) Urine Ketones Negative (Negative) Urine Blood Negative /uL (Negative) Urine Nitrite Negative (Negative) Urine Bilirubin Negative (Negative) Urine Urobilinogen Normal mg/dL (Negative) Urine Leukocyte Esterase Negative /uL (Negative) Urine RBC <1 /hpf (0 - 3) Urine Microscopic WBC < 1 /HPF (0-3) Urine Squamous Epithelial Cells Few /hpf (<5) Urine Bacteria None seen /hpf (None Seen) Urine Glucose Normal mg/dL (Normal) Assessment/Plan Assessment/Plan 80-YEAR-OLD MALE HAS A PAST MEDICAL HISTORY OF CORONARY ARTERY DISEASE STATUS POST CABG, PCI, HYPERTENSION INITIALLY PRESENTED TO THE HOSPITAL WITH CHEST PAIN FOUND TO HAVE 1. BRADYCARDIA SUSPECT BETA NATHALIE INDUCED 2. CHEST PAIN POSSIBLE UNSTABLE ANGINA 3. CAD STATUS POST CABG, STATUS POST PCI 4. DIABETES MELLITUS TYPE 2 5. PARKINSON'S DISEASE 6. HYPERTENSION 7. DYSLIPIDEMIA -PLAN IS CONTINUE CURRENT MANAGEMENT, FOLLOW UP 2D ECHO CARDIOLOGY RECOMMENDATIONS, KEEP HOLDING BETA NATHALIE. Plan discussed with: Other My Orders Orders - KANE INIGUEZ MD Procedure Category Date Status Time * Swallow Request ST 10/07/25 Transmitted 11:56 Npo (Nothing By DIET 10/07/25 Transmitted Mouth) Diet Lunch Date of Service: Oct 07, 2025 Billing Provider: KANE INIGUEZ MD Common Visit Codes: [id number] INP/OBS CARE(HIGH) KANE INIGUEZ MD Oct 07, 2025 17:09
[2025-10-08] VITALS (8 sets, daily range): BP systolic 95–147; BP diastolic 61–78; PULSE 64–98; RESP 18–20; TEMP 97.4–98.4; O2SAT 92–97
[2025-10-08 07:28] LABS: Hematocrit 45.3 % (41.0-53.0); Hemoglobin 15.6 g/dL (13.5-17.5); Mean Corpuscular Hemoglobin 32.8 pg (28.0-32.0); Mean Corpuscular Volume 95.4 fL (80.0-100.0); Nucleated Red Blood Cells % 0.1 %
[2025-10-08 07:45] LABS: Chloride 101 mmol/L (98-107); Potassium 4.1 mmol/L (3.5-5.1); Sodium 140 mmol/L (136-145)
[2025-10-08 07:46] LABS: Anion Gap 17 (5-15); Carbon Dioxide 22 mmol/L (20-31)
[2025-10-08 07:47] LABS: Calcium 9.6 mg/dL (8.7-10.4)
[2025-10-08 07:52] LABS: BUN/Creatinine Ratio 20.8 (10.0-20.0); Magnesium 2.0 mg/dL (1.6-2.6)
[2025-10-08 07:53] LABS: Blood Urea Nitrogen 40 mg/dL (9-23); Glucose 159 mg/dL (74-106)
[2025-10-08] MEDS ORDERED: ASPI1TAB20 PO (09:58)
--- NOTE | 2025-10-08 14:59 | DVHPN2 ---
Reviewed: Care Plan, H&P, Labs, Medications, Previous Orders, Radiology Changes from previous H/P or p: No Changes Objective Vitals Vital Signs Date Time Temp Pulse Resp B/P (MAP) Pulse Ox O2 Delivery O2 Flow Rate FiO2 10/08/25 13:00 97.4 85 18 112/78 (89) 96 97.4 10/08/25 08:05 Room Air* 0 21 Intake/Output Intake and Output 10/08/25 07:00 Intake Total 0 ml Balance 0 ml Intake Oral 0 ml # Voids 10 Medications Current Medications Medications Dose Ordered Sig/Elana Route Start Time Stop Time Status Last Admin Dose Admin Nitroglycerin 0.4 mg Q5MINP PRN SL 10/06/25 04:30 Morphine Sulfate 2 mg Q30M PRN IV 10/06/25 04:45 Pantoprazole Sodium 40 mg DAILY@0600 PO 10/06/25 06:00 10/07/25 05:29 40 MG Furosemide 40 mg BIDD IV 10/06/25 06:00 10/08/25 06:40 40 MG Clopidogrel Bisulfate 75 mg DAILY PO 10/06/25 10:00 10/06/25 10:14 75 MG Carbidopa/Levodopa 1 tab TID PO 10/06/25 06:00 10/07/25 05:30 1 TAB Olanzapine 20 mg QPM PO 10/06/25 18:00 10/06/25 18:00 20 MG Losartan Potassium 50 mg DAILY PO 10/06/25 10:00 10/06/25 13:51 50 MG Atorvastatin Calcium 40 mg HS PO 10/06/25 22:00 10/06/25 22:11 40 MG Tamsulosin HCl 0.4 mg QPM PO 10/06/25 18:00 10/06/25 17:59 0.4 MG Ranolazine 500 mg BID PO 10/06/25 10:00 10/06/25 22:11 500 MG Empaglifozin 10 mg DAILY PO 10/07/25 10:00 Spironolactone 25 mg DAILY PO 10/07/25 10:00 Laboratory Results Laboratory Tests 10/08/25 06:57 Chemistry Test 10/08/25 06:57 Calcium Level 9.6 mg/dL (8.7-10.4) Magnesium Level 2.0 mg/dL (1.6-2.6) Urinalysis Test 10/06/25 09:03 Urine Color Colorless (Yellow) Urine Clarity Clear (Clear) Urine pH 6.5 (5.0-9.0) Urine Specific [place] 1.005 (1.001-1.035) Urine Protein Negative (Negative) Urine Ketones Negative (Negative) Urine Blood Negative /uL (Negative) Urine Nitrite Negative (Negative) Urine Bilirubin Negative (Negative) Urine Urobilinogen Normal mg/dL (Negative) Urine Leukocyte Esterase Negative /uL (Negative) Urine RBC <1 /hpf (0 - 3) Urine Microscopic WBC < 1 /HPF (0-3) Urine Squamous Epithelial Cells Few /hpf (<5) Urine Bacteria None seen /hpf (None Seen) Urine Glucose Normal mg/dL (Normal) Labs and/or images reviewed: Labs reviewed by me, Image(s) reviewed by me Assessment/Plan Assessment/Plan Likely beta-zach induced bradycardia, glucagon given p.r.n. bradycardia resolved no further cardiac workup Severe coronary artery disease status post triple vessel CABG (1998) and PCI x 2DES (2017) - on plavix & statin Acute on chronic decompensated HFmrEF, NYHA Class II Hypertension Dyslipidemia [id number] diabetes mellitus Parkinson's disease Recent hospice care status Swallow evaluation pending Plan discussed with: Patient Date of Service: Oct 08, 2025 Billing Provider: MIGNON ZELAYA MD Common Visit Codes: [id number] INP/OBS CARE(HIGH) MIGNON ZELAYA MD Oct 08, 2025 14:59
[2025-10-08] MEDS: diphenhydrAMINE HCL 50 MG/1 ML VL IV ONE (22:54)
[2025-10-09] VITALS (7 sets, daily range): BP systolic 111–134; BP diastolic 60–102; PULSE 58–93; RESP 17–18; TEMP 97.4–98.3; O2SAT 94–97
--- NOTE | 2025-10-09 09:34 | DVHPN2 ---
Reviewed: Care Plan, H&P, Labs, Medications, Previous Orders, Radiology Changes from previous H/P or p: No Changes Objective Vitals Vital Signs Date Time Temp Pulse Resp B/P (MAP) Pulse Ox O2 Delivery O2 Flow Rate FiO2 10/09/25 09:00 97.5 65 17 134/91 (105) 95 97.5 10/09/25 08:11 Room Air* 0 21 Intake/Output Intake and Output 10/09/25 07:00 Intake Total 0 ml Output Total 350 ml Balance -350 ml Intake Oral 0 ml Output Urine Total 350 ml # Voids 10 Medications Current Medications Medications Dose Ordered Sig/Elana Route Start Time Stop Time Status Last Admin Dose Admin Nitroglycerin 0.4 mg Q5MINP PRN SL 10/06/25 04:30 Morphine Sulfate 2 mg Q30M PRN IV 10/06/25 04:45 Pantoprazole Sodium 40 mg DAILY@0600 PO 10/06/25 06:00 10/07/25 05:29 40 MG Furosemide 40 mg BIDD IV 10/06/25 06:00 10/09/25 05:47 40 MG Clopidogrel Bisulfate 75 mg DAILY PO 10/06/25 10:00 10/06/25 10:14 75 MG Carbidopa/Levodopa 1 tab TID PO 10/06/25 06:00 10/07/25 05:30 1 TAB Olanzapine 20 mg QPM PO 10/06/25 18:00 10/06/25 18:00 20 MG Losartan Potassium 50 mg DAILY PO 10/06/25 10:00 10/06/25 13:51 50 MG Atorvastatin Calcium 40 mg HS PO 10/06/25 22:00 10/06/25 22:11 40 MG Tamsulosin HCl 0.4 mg QPM PO 10/06/25 18:00 10/06/25 17:59 0.4 MG Ranolazine 500 mg BID PO 10/06/25 10:00 10/06/25 22:11 500 MG Empaglifozin 10 mg DAILY PO 10/07/25 10:00 Spironolactone 25 mg DAILY PO 10/07/25 10:00 Laboratory Results Laboratory Tests 10/08/25 06:57 Urinalysis Test 10/06/25 09:03 Urine Color Colorless (Yellow) Urine Clarity Clear (Clear) Urine pH 6.5 (5.0-9.0) Urine Specific [place] 1.005 (1.001-1.035) Urine Protein Negative (Negative) Urine Ketones Negative (Negative) Urine Blood Negative /uL (Negative) Urine Nitrite Negative (Negative) Urine Bilirubin Negative (Negative) Urine Urobilinogen Normal mg/dL (Negative) Urine Leukocyte Esterase Negative /uL (Negative) Urine RBC <1 /hpf (0 - 3) Urine Microscopic WBC < 1 /HPF (0-3) Urine Squamous Epithelial Cells Few /hpf (<5) Urine Bacteria None seen /hpf (None Seen) Urine Glucose Normal mg/dL (Normal) Labs and/or images reviewed: Labs reviewed by me, Image(s) reviewed by me Assessment/Plan Assessment/Plan Possible beta-zach induced bradycardia, glucagon given p.r.n. bradycardia resolved no further cardiac workup Severe coronary artery disease status post triple vessel CABG (1998) and PCI x 2DES (2017) - on plavix & statin Acute on chronic decompensated HFmrEF, NYHA Class II Hypertension Dyslipidemia Coo-jzsxnuw-[id number] diabetes mellitus Parkinson's disease Recent hospice care status Swallow evaluation pending General condition very poor Time spent 50 minutes Advanced care planning time 20 minutes Patient is full code Plan discussed with: Patient My Orders Orders - MIGNON ZELAYA MD Procedure Category Date Status Time Speech Pathologist [facility] 10/08/25 In Process Eval: [place] 14:59 Date of Service: Oct 09, 2025 Billing Provider: MIGNON ZELAYA MD Common Visit Codes: [id number] INP/OBS CARE(HIGH) MIGNON ZELAYA MD Oct 09, 2025 09:34
[2025-10-09] MEDS: LACTATED RINGER'S 1,000 ML IV SCH (14:26)
[2025-10-10 01:00] VITALS: BP 128/73; PULSE 54; RESP 17; TEMP 97.3; O2SAT 96
[2025-10-10 05:00] VITALS: BP 157/101; PULSE 56; RESP 16; TEMP 97.4; O2SAT 95
--- NOTE | 2025-10-10 08:20 | DVHPN2 ---
Reviewed: Care Plan, H&P, Labs, Medications, Previous Orders, Radiology Changes from previous H/P or p: No Changes Objective Vitals Vital Signs Date Time Temp Pulse Resp B/P (MAP) Pulse Ox O2 Delivery O2 Flow Rate FiO2 10/10/25 06:06 157/101 10/10/25 05:00 97.4 56 16 95 97.4 10/09/25 20:00 Nasal Cannula* 2 28 Intake/Output Intake and Output 10/10/25 07:00 Intake Total 0 ml Balance 0 ml Intake Oral 0 ml # Voids 6 Medications Current Medications Medications Dose Ordered Sig/Elana Route Start Time Stop Time Status Last Admin Dose Admin Nitroglycerin 0.4 mg Q5MINP PRN SL 10/06/25 04:30 Morphine Sulfate 2 mg Q30M PRN IV 10/06/25 04:45 Pantoprazole Sodium 40 mg DAILY@0600 PO 10/06/25 06:00 10/07/25 05:29 40 MG Furosemide 40 mg BIDD IV 10/06/25 06:00 10/10/25 06:06 40 MG Clopidogrel Bisulfate 75 mg DAILY PO 10/06/25 10:00 10/06/25 10:14 75 MG Carbidopa/Levodopa 1 tab TID PO 10/06/25 06:00 10/07/25 05:30 1 TAB Olanzapine 20 mg QPM PO 10/06/25 18:00 10/06/25 18:00 20 MG Losartan Potassium 50 mg DAILY PO 10/06/25 10:00 10/06/25 13:51 50 MG Atorvastatin Calcium 40 mg HS PO 10/06/25 22:00 10/06/25 22:11 40 MG Tamsulosin HCl 0.4 mg QPM PO 10/06/25 18:00 10/06/25 17:59 0.4 MG Ranolazine 500 mg BID PO 10/06/25 10:00 10/06/25 22:11 500 MG Empaglifozin 10 mg DAILY PO 10/07/25 10:00 Spironolactone 25 mg DAILY PO 10/07/25 10:00 Lactated Ringer's 1,000 ml @ 125 mls/hr Q8H IV 10/09/25 13:45 10/10/25 05:19 125 MLS/HR Laboratory Results Laboratory Tests 10/08/25 06:57 Urinalysis Test 10/06/25 09:03 Urine Color Colorless (Yellow) Urine Clarity Clear (Clear) Urine pH 6.5 (5.0-9.0) Urine Specific [place] 1.005 (1.001-1.035) Urine Protein Negative (Negative) Urine Ketones Negative (Negative) Urine Blood Negative /uL (Negative) Urine Nitrite Negative (Negative) Urine Bilirubin Negative (Negative) Urine Urobilinogen Normal mg/dL (Negative) Urine Leukocyte Esterase Negative /uL (Negative) Urine RBC <1 /hpf (0 - 3) Urine Microscopic WBC < 1 /HPF (0-3) Urine Squamous Epithelial Cells Few /hpf (<5) Urine Bacteria None seen /hpf (None Seen) Urine Glucose Normal mg/dL (Normal) Labs and/or images reviewed: Labs reviewed by me, Image(s) reviewed by me Assessment/Plan Assessment/Plan Possible beta-zach induced bradycardia, glucagon given p.r.n. bradycardia resolved no further cardiac workup Severe coronary artery disease status post triple vessel CABG (1998) and PCI x 2DES (2017) - on plavix & statin Acute on chronic decompensated HFmrEF, NYHA Class II Hypertension Dyslipidemia Txk-gezdkwu-xjqbbyqlb diabetes mellitus Parkinson's disease Recent hospice care status Swallow evaluation failed General condition very poor Patient [facility] at bedside requesting patient to be discharged back to the hospice today Plan discussed with: Patient My Orders Orders - MIGNON ZELAYA MD Procedure Category Date Status Time * Chief Revenue Officer CONS 10/09/25 Transmitted Consult Lactated Ringer's PHA 10/09/25 In Process 13:45 Date of Service: Oct 10, 2025 Billing Provider: MIGNON ZELAYA MD Common Visit Codes: [id number] INP/OBS CARE(HIGH) MIGNON ZELAYA MD Oct 10, 2025 08:20
--- NOTE | 2025-10-10 08:25 | DVHDS2 ---
Discharge Summary Date of Admission Oct 06, 2025 at 04:18 Date of Discharge: Oct 10, 2025 Admitting Diagnosis Generalized weakness Wounds: None Labs/Diagnostic Data: Laboratory Results Test 10/08/25 20:07 10/08/25 06:57 10/06/25 09:03 10/06/25 04:45 POC Glucose 202 mg/dl (70-106) White Blood Count 8.9 10^3/uL (4.4-10.8) Red Blood Count 4.74 10^6/uL (4.5-5.90) Hemoglobin 15.6 g/dL (13.5-17.5) Hematocrit 45.3 % (41.0-53.0) Mean Corpuscular Volume 95.4 fL (80.0-100.0) Mean Corpuscular Hemoglobin 32.8 pg (28.0-32.0) Mean Corpuscular Hemoglobin Concent 34.4 g/dL (32.0-36.0) Red Cell Distribution Width 14.8 % (11.8-14.3) Platelet Count 358 10^3/uL (140-450) Mean Platelet Volume 7.9 fL (6.9-10.8) Neutrophils (%) (Auto) 50.0 % (37.0-80.0) Lymphocytes (%) (Auto) 33.0 % (10.0-50.0) Monocytes (%) (Auto) 15.5 % (0.0-12.0) Eosinophils (%) (Auto) 0.8 % (0.0-7.0) Basophils (%) (Auto) 0.7 % (0.0-2.0) Neutrophils # (Auto) 4.5 10 ^3/uL (1.6-8.6) Lymphocytes # (Auto) 2.9 10 ^3/uL (0.4-5.4) Monocytes # (Auto) 1.4 10 ^3/uL (0-1.3) Eosinophils # (Auto) 0.1 10 ^3/uL (0-0.8) Basophils # (Auto) 0.1 10 ^3/uL (0-0.2) Nucleated Red Blood Cells 0.1 % Sodium Level 140 mmol/L (136-145) Potassium Level 4.1 mmol/L (3.5-5.1) Chloride Level 101 mmol/L (98-107) Carbon Dioxide Level 22 mmol/L (20-31) Anion Gap 17 (5-15) Blood Urea Nitrogen 40 mg/dL (9-23) Creatinine 1.92 mg/dL (0.700-1.30) Glomerular Filtration Rate Calc 35 mL/min (>90) BUN/Creatinine Ratio 20.8 (10.0-20.0) Serum Glucose 159 mg/dL (74-106) Calcium Level 9.6 mg/dL (8.7-10.4) Magnesium Level 2.0 mg/dL (1.6-2.6) Urine Color Colorless (Yellow) Urine Clarity Clear (Clear) Urine pH 6.5 (5.0-9.0) Urine Specific [place] 1.005 (1.001-1.035) Urine Protein Negative (Negative) Urine Ketones Negative (Negative) Urine Blood Negative /uL (Negative) Urine Nitrite Negative (Negative) Urine Bilirubin Negative (Negative) Urine Urobilinogen Normal mg/dL (Negative) Urine Leukocyte Esterase Negative /uL (Negative) Urine RBC <1 /hpf (0 - 3) Urine Microscopic WBC < 1 /HPF (0-3) Urine Squamous Epithelial Cells Few /hpf (<5) Urine Bacteria None seen /hpf (None Seen) Urine Glucose Normal mg/dL (Normal) Influenza Type A Antigen Negative (Negative) Influenza Type B Antigen Negative (Negative) SARS-CoV-2 Antigen (Rapid) Negative (NEGATIVE) Test 10/06/25 00:36 10/05/25 21:38 Troponin I High Sensitivity 13 ng/L (</=54) Lactic Acid Level 1.5 mmol/L (0.4-2.0) Total Bilirubin 0.9 mg/dL (0.2-1.0) Aspartate Amino Transferase (AST) 20 U/L (13-40) Alanine Aminotransferase (ALT) 16 U/L (7-40) Alkaline Phosphatase 94 U/L (46-116) B-Type Natriuretic Peptide 158.88 pg/mL (0-100) Total Protein 7.6 g/dL (5.7-8.2) Albumin 4.2 g/dL (3.2-4.8) Other Laboratory Tests 10/08/25 06:57 Brief Hx & Hospital Course: 80-year-old male with a coronary artery disease CHF hypertension hyperlipidemia diabetes Parkinson's on hospice burden by family for altered mental status found to have bradycardia secondary to beta zach induced bradycardia given glucagon bradycardia resolved and no further cardiac workup patient has been refusing to eat failed swallow evaluation general condition very poor and family requesting to be discharged back on previous hospice. Discharged general condition poor. Consults/Reason for consult Cardiology Operations or Procedures None Condition at Discharge: Poor Final Diagnosis/Problems List Possible beta-zach induced bradycardia, glucagon given p.r.n. bradycardia resolved no further cardiac workup Severe coronary artery disease status post triple vessel CABG (1998) and PCI x 2DES (2018) - on plavix & statin Acute on chronic decompensated HFmrEF, NYHA Class II Hypertension Dyslipidemia [id number] diabetes mellitus Parkinson's disease Discharge Disposition: Home Discharge Instruct/Medications Diet: Cardiac 2g Na,low cholest Activity: Light activity Follow Up/Referral: Follow up with the hospice Dr Medications: per hospice Scheduled Aspirin (Aspir-81), 1 TAB PO DAILY, (Reported) Clopidogrel Bisulfate (Plavix), 1 TAB PO DAILY, (Reported) Furosemide (Furosemide), 20 MG PO DAILY, (Reported) Lorazepam (Ativan Tablet), 1 TAB PO TID, (Reported) Mirtazapine (Mirtazapine Oral Disintegrating Tablet), 1 TAB PO QPM, (Reported) Nitrofurantoin (Macrodantin Capsule), 1 CAP PO BID Olanzapine (Zyprexa), 1 TAB PO QPM Rosuvastatin Calcium (Crestor), 1 TAB PO DAILY, (Reported) Scheduled PRN Tramadol Hcl (Tramadol Hcl), 50 MG PO Q6HP PRN for PAIN SCALE 1 THRU 6, (Reported) Miscellaneous Medications Bicalutamide (Bicalutamide), 50 MG PO, (Reported) Carbidopa-Levodopa (Carbidopa/Levodopa Er), 1 100 PO, (Reported) Carvedilol (Coreg), 6.25 MG OR, (Reported) Glipizide (Glipizide), 5 MG PO, (Reported) Metformin HCl (Metformin Hydrochloride), 1,000 MG PO, (Reported) Tamsulosin HCl (Tamsulosin Hydrochloride), 0.4 MG PO, (Reported) 35 (Time taken for discharge summary 35 minutes) Discharge Statement: "Patient was advised to return to the ER or call 911 if any headaches, dizziness, shortness of breath, chest pain, abdominal pain, bleeding, fevers, or worsening of medical condition. Patient was counseled about treatment plan, medications, possible side effects, patientverbalized understanding. All questions were answered to the best of my ability. This discharge took greater then 30 minutes in planning, reviewing documentation, counseling the patient, and discussing with other team members." ASSESSMENT ASSESSMENT Hospital Course Uneventful Assessment Possible beta-zach induced bradycardia, glucagon given p.r.n. bradycardia resolved no further cardiac workup Severe coronary artery disease status post triple vessel CABG (1998) and PCI x 2DES (2017) - on plavix & statin Acute on chronic decompensated HFmrEF, NYHA Class II Hypertension Dyslipidemia Ucz-gtqrpma-ejwgdsvzy diabetes mellitus Parkinson's disease Date of Service: Oct 10, 2025 Billing Provider: MIGNON ZELAYA MD Common Visit Codes: [id number] DISCH DAY >30min MIGNON ZELAYA MD Oct 10, 2025 08:25
[2025-10-10 09:53] VITALS: BP 157/101; TEMP 36.3
== END 2025-10-10 12:14 | disposition hospice, home (50) | DRG 291 ==
LOC: EDBD 21:33 → ER 21:33 → OVERFLOW 10-06 04:18 → TELE-CENTR 10-06 04:32
PROVIDERS: ADMIT Family Medicine; ATTEND Family Medicine
DX: I11.0 Hypertensive heart disease with heart failure (principal); I50.23 Acute on chronic systolic (congestive) heart failure; J96.01 Acute respiratory failure with hypoxia; Z51.5 Encounter for palliative care; G20.A1 Parkinson's disease without dyskinesia, without mention of fluctuations; F02.80 Dementia in other diseases classified elsewhere, unspecified severity, without behavioral disturbance, psychotic disturbance, mood disturbance, and anxiety; E11.9 Type 2 diabetes mellitus without complications; R00.1 Bradycardia, unspecified; Z66 Do not resuscitate; E78.5 Hyperlipidemia, unspecified; I25.10 Atherosclerotic heart disease of native coronary artery without angina pectoris; Z20.822 Contact with and (suspected) exposure to COVID-19; T44.7X5A Adverse effect of beta-adrenoreceptor antagonists, initial encounter; Z95.1 Presence of aortocoronary bypass graft; Z95.5 Presence of coronary angioplasty implant and graft; I25.2 Old myocardial infarction; Z85.46 Personal history of malignant neoplasm of prostate; Z90.79 Acquired absence of other genital organ(s); Y92.89 Other specified places as the place of occurrence of the external cause; Z79.899 Other long term (current) drug therapy; Z79.84 Long term (current) use of oral hypoglycemic drugs
CPT/HCPCS: 36415; 71045; 80048; 80053; 81001; 82962; 83605; 83735; 83880; 84484; 85025; 87426; 87804; 93005; 93306; 96374; G0378